=== PATIENT | male | born 1975 | race Caucasian/White ===

== ENCOUNTER 2018-03-18 20:04 | Emergency (ER) | payer OTHER, SELFPAY ==
[2018-03-18 20:13] VITALS: BP 150/90; PULSE 66; RESP 20; TEMP 37.3; O2SAT 97
--- NOTE | 2018-03-18 20:51 | ED.GENADUL_ITS ---
Disposition Clinical Impression: Ulnar neuropathy, Tendinitis of right wrist Disposition: HOME Condition: Stable Instructions: Tendinitis (ED) Additional Instructions: Please wear the brace at all times for the next 2 weeks and take pain medication as needed. If you not improving over the next 2 weeks please follow- up with orthopedist for reassessment. Prescriptions: Diclofenac Sodium 50 mg PO Q8H PRN #15 tablet.dr OSBORNE Reason: Pain Referrals: Lamine Faith MD [ [facility] STAFF PHYSICIAN] - Pedro Quesada MD [ [facility] STAFF PHYSICIAN] - 2 weeks (If not improving over the next 2 weeks please call orthopedic office for arrangement of follow- up appointment) Medical Decision Making - Medical Decision Making Patient presenting to the emergency department with complaint of right wrist pain after bowling. Physical exam is unremarkable and patient has appropriate strength and movement but does have sensation of numbness and tingling in ulnar distribution and also some mild medial epicondyle tenderness but no pain with movement and so not typical for golfer's elbow but more of wrist tendinitis. Patient has no other findings so patient was placed in a wrist splint and prescribed diclofenac and told to follow-up with orthopedist in 2 weeks if not improved. After discussion of diagnosis and plan of care with patient patient agreed and stated no further needs, questions, or concerns at this time. History of Present Illness - General Chief complaint: Orthopedic Stated complaint: RT HAND INJURY Time Seen by Provider: 03/18/18 20:49 Source: patient, RN notes reviewed Mode of arrival: ambulatory Limitations: no limitations - History of Present Illness Initial comments: Patient reports months ago he was bowling and started to notice some pain in his right hand. He was concerned he may have injured the tendon and so he stopped bowling for a while. Then today he reattempted to do this and when he threw the ball little more harder than normal he noticed significant pain to his little and ring finger on the right hand. Patient states that he never got evaluated for the initial injury as it slowly resolved without any major intervention. Patient denies any injury or trauma, falls. Onset/Timin -: minutes(s) Location: right, upper extremity Severity scale (1-10): 6 Quality: aching Consistency: constant Improves with: immobilization Worsens with: movement Associated Symptoms: denies other symptoms Treatments Prior to Arrival: none - Related Data Albuterol [Proventil Hfa] 6.7 gm IH 03/23/13 Diclofenac Sodium 50 mg PO Q8H PRN #15 tablet. 03/18/18 Fluticasone/Salmeterol [Advair 100-50 Diskus] 1 puff IN PRN PRN 03/18/18 Allergies Allergy/AdvReac Type Severity Reaction Status Date / Time Latex, Natural Rubber Allergy Skin Rash Unverified 12/18/17 19:58 codeine AdvReac Mild Nausea Unverified 12/18/17 19:58 church AdvReac Uncoded 03/18/18 20:15 Review of Systems Constitutional: no symptoms reported Respiratory: no symptoms reported Cardiovascular: denies: chest pain Musculoskeletal: as per HPI Skin: denies: rash, change in color Neurological: paresthesias (To the ulnar aspect of right hand). denies: weakness Comment: All other systems reviewed and negative Past Medical History - Past Medical History Medical history: asthma Noncontributory Surgical history: other (Tonsillectomy, right arm tendon repair) - Social History Smoking status: never smoker Alcohol use: none Drug use: none General Exam - General Limitations: no limitations General appearance: alert, in no apparent distress - Respiratory Respiratory exam: Absent: respiratory distress - Cardiovascular Cardiovascular Exam: Present: regular rate, normal rhythm - Expanded Upper Extremity Exam Right Upper Arm exam: Present: normal inspection, full ROM. Absent: tenderness Elbow exam: Present: full ROM, tenderness (Mild tenderness is noted to the medial epicondyle), other. Absent: pain w/ pronation/supination, tenderness over radial head Forearm Wrist exam: Present: full ROM. Absent: tenderness, tenderness over anatomical snuff box, pain with axial thumb loading Hand Wrist exam: Present: full ROM. Absent: other (Negative Tinel and Phalen's test) Neuro motor exam: Present: wrist extension intact, thumb opposition intact, thumb IP flexion intact, thumb adduction intact, fingers 2-5 abduction intact Neurosensory exam: Present: 2-point discrimination, radial nerve intact, ulnar nerve intact, median nerve intact Vascular: Present: normal capillary refill, radial pulse (2+) - Neurological Exam Neurological exam: Present: alert, oriented X3. Absent: altered - Skin Skin exam: Present: warm, dry, intact, normal color Course Vital Signs - 24 hr 03/18/18 20:13 Temperature 37.3 C Pulse 66 Respiratory 20 Rate Blood Pressure 150/90 Pulse Oximetry 97
[2018-03-18 22:26] VITALS: BP 150/90; PULSE 66; RESP 20; TEMP 37.3; O2SAT 97
== END 2018-03-18 21:20 | disposition home or self-care (01) ==
PROVIDERS: Emergency Provider Emergency Medicine; PCP Nurse Practitioner
DX: G56.21 Lesion of ulnar nerve, right upper limb (principal); M77.8 Other enthesopathies, not elsewhere classified
CPT/HCPCS: 29125; 99284; L3908

== ENCOUNTER 2018-07-10 01:54 | Emergency (ER) | payer OTHER, SELFPAY ==
[2018-07-10 01:59] VITALS: BP 165/111; PULSE 61; RESP 18; TEMP 36.9; O2SAT 97
--- NOTE | 2018-07-10 02:51 | DI.CT_ITS ---
SYMPTOMS/DIAGNOSIS: RIGHT UPPER CERVICAL/OCCIPITAL PAIN CT BRAIN, NONCONTRAST: No priors. There is normal kemp-white matter differentiation. The ventricles are intact. The basilar cisterns are patent. No intracranial hemorrhage, infarct, midline shift or mass effect is identified. There is opacification of a few right ethmoid air cells. The remaining visualized paranasal sinuses are clear. The mastoid air cells are well pneumatized. The calvarium is intact. IMPRESSION: No acute intracranial process. CT SCAN OF THE CERVICAL SPINE: Multiple contiguous axial images of the cervical spine were obtained. Sagittal and coronal reformatted images were evaluated on the Siemens workstation. There is straightening of the normal cervical lordosis. No acute fractures or subluxations are seen. No significant neural foraminal or central spinal canal stenosis is seen. There are lucencies seen in the L3 and L4 vertebral bodies. The largest is seen in the L3 vertebral body and measures 0.8 cm. No periosteal reaction or associated soft tissue mass is appreciated. The soft tissues are unremarkable. The lung apices are clear. IMPRESSION: 1. No acute fractures or subluxations in the cervical spine. 2. Straightening of the cervical spine. This may be due to muscle spasm or patient positioning. 3. Lucencies seen within the C3 and C4 vertebral bodies. These are nonspecific. If clinically indicated, a bone scan may be obtained for further evaluation.
--- NOTE | 2018-07-10 02:52 | W.ED.GENAD ---
Discharge Plan Disposition Patient Disposition: HOME Condition: Improving Discharge Details Chief Complaint: Headache Clinical Impression: Neck pain on right side, Right-sided headache Primary Care Provider: Dedra Akhtar ED Provider: Darnell Guadalupe Meds and New Rx's Prescriptions: New lidocaine [Lidoderm] 5 % Adhesive Patch,Medicated 1 patch Topical DIRECTED Qty: 6 RF: 0 ibuprofen 600 mg tablet 600 mg PO TID PRN (Reason: pain) Qty: 20 RF: 0 Continue albuterol sulfate [Proventil HFA] 1 PUFF HFA aerosol inhaler 6.7 gm Inhalation RF: 0 Discharge Instructions Additional Instructions: CT scans are negative for any acute pathology. Some lucencies in the cervical spine can be followed up with bone scan if thought necessary by primary care. There are no masses, fracture, swelling noted. Lidoderm patches and ibuprofen as directed. Follow-up with primary care this week. Return to ED for worsening pain, numbness, weakness, fever, any other concerns. Referrals: Dedra Akhtar [Primary Care Provider] - Medical Decision Making Patient has some signs and symptoms consistent with occipital neuralgia, but palpation over the occipital ridge does not increase the pain. He has normal range of motion of the neck and no pain with range of motion of the neck; yet he has tenderness with increased pain with palpation in the right paracervical region about C1-C2 area. Pain radiates up and behind the ear at times consistent with occipital neuralgia. But he also complains of pain radiating along the right mandible which is more consistent with trigeminal neuralgia. He also has pain that radiates down the neck into his throat area. There is no clear nerve distribution that this pattern affects. There is no trauma. He is completely neurologically intact. Ibuprofen and acetaminophen has helped to some degree. There is no rash to suggest shingles. ENT exam is unremarkable. I'm going to place a Lidoderm patch in the right upper cervical region and give him a shot of Toradol. Will scan his head and cervical spine for any gross abnormalities. CT scan of head and neck essentially unremarkable. Some radiolucencies in C3-C4. Radiology suggests bone scan if concern for these areas. On reevaluation patient's pain is better and more tolerable though not gone. Blood pressure still elevated so we will need to follow-up with primary care in regards to his pain as well as blood pressure. Will discharge home and have him follow-up with primary care this coming week. Return to ED for worsening pain, fever, any neurologic symptoms. HPI General Mode of arrival: ambulatory. Date/Time Provider Initiated Documentation: 07/10/18 02:09. Limitations to Documentation: no limitations. Information obtained by: patient. HPI Narrative: Patient presents to the ED with complaint of right-sided neck and head pain. Patient started having pain 1-2 days ago. It is described as a constant sharp throbbing pain that emanates from the upper right side of the neck. At times it seems to go behind and over the ear. At times it seems to go out into the right jaw towards the chin. Other times it seems to go down into his neck and throat. Pushing over his right side upper cervical region can cause the pain to be worse. There is no increasing pain with range of motion of his neck. He has no limited range of motion of his neck. There has been no trauma. There has been no fever. It almost feels like he has an earache at times. He has no cold symptoms. He has no difficulty swallowing. He has no pain with swallowing. He has no numbness or tingling. There is no rash. He has never had this previously. He has been taking ibuprofen and acetaminophen with minimal relief. Related Data Home Medications Medication Instructions Recorded Confirmed albuterol sulfate [Proventil HFA] 6.7 gm INHALATION 03/23/13 10/08/15 ibuprofen 600 mg PO TID PRN #20 tab 07/10/18 lidocaine [Lidoderm] 1 patch TOPICAL DIRECTED #6 ea 07/10/18 Previous Rx's Medication Instructions Recorded ibuprofen 600 mg PO TID PRN #20 tab 07/10/18 lidocaine [Lidoderm] 1 patch TOPICAL DIRECTED #6 ea 07/10/18 Allergies Allergy/AdvReac Type Severity Reaction Status Date / Time Latex, Natural Rubber Allergy Skin Rash Unverified 07/10/18 02:06 codeine AdvReac Mild Nausea Unverified 07/10/18 02:06 church AdvReac Uncoded 07/10/18 02:06 General Stated Complaint: Headache WAYNE: 3 Review of Systems Constitutional Denies chills, Denies fever(s), Reports headache(s) and Denies weakness Eyes Denies blurry vision, Denies change in vision, Denies eye pain and Denies photophobia ENT Denies abnormal hearing, Denies dental pain, Denies dysphagia, Denies vertigo, Denies dizziness, Reports otalgia, Reports facial pain, Reports headache(s), Denies nasal congestion, Reports neck pain, Denies sinus pain, Denies sinus pressure and Denies sore throat Cardiovascular Denies chest pain, Denies edema and Denies dyspnea Respiratory Denies cough and Denies dyspnea Gastrointestinal Denies abdominal pain, Denies dysphagia, Denies nausea and Denies vomiting Musculoskeletal Denies back pain, Denies myalgias, Denies arthralgias, Denies limited range of motion, Denies muscle weakness, Reports neck pain, Denies numbness, Denies radiating pain into limb, Denies stiffness and Denies tingling Integumentary/Breasts Denies rash Neurologic Denies abnormal hearing, Denies abnormal speech, Denies burning sensations, Denies vertigo, Denies dizziness, Reports headache(s), Denies focal weakness, Denies numbness, Denies other visual disturbances, Denies sensory deficit, Denies tingling, Denies paresthesias and Denies weakness PFSH Asthma (Chronic) History of surgery on arm (Inactive) Medical History Asthma (Chronic) Social History Smoking/Tobacco Use Status: Never Surgical History History of surgery on arm (Inactive) Social History Smoking/Tobacco Use Status: Never Exam Const General: cooperative, uncomfortable and not ill appearing Orientation: alert and oriented x3 HENMT Head: normal to inspection, normocephalic, atraumatic, no occipital foramen tenderness, no scalp lesions, no scalp tenderness and no temporal artery tenderness Ears: hearing grossly normal bilaterally, external ears normal, TM's normal bilaterally, EAC's normal and mastoids normal Face and sinus: normal facial exam, sinuses nontender, face symmetric and no erythema Mouth: oropharynx normal Teeth and gingiva: dentition normal Throat: posterior oropharynx normal and uvula midline Eyes Conjunctivae: conjunctivae normal Sclera: sclerae normal Pupils: PERRL EOM: EOM intact bilaterally Neck Neck: normal visual inspection, full ROM, no lymphadenopathy, trachea midline and supple Back/Spine/Pelvis Cervical Spine: cervical ROM normal, cervical muscular tenderness, No pain with cervical ROM and No cervical spinal tenderness Skin General skin exam: no rashes or lesions noted Neuro General: alert, oriented x3, gait normal, no focal motor deficits and CN's II-XI intact bilaterally Cognition: normal cognition Speech: speech normal Gait: normal gait Sensory Exam: no sensory deficits noted Extrem General: normal to inspection and no clubbing, cyanosis or edema Course Vital Signs Temperature 98.4 F 07/10/18 01:59 Pulse 61 07/10/18 01:59 Respiratory Rate 18 07/10/18 01:59 Blood Pressure 165/111 H 07/10/18 01:59 Pulse Oximetry 97 07/10/18 01:59 Temperature 98.4 F 07/10/18 01:59 Temperature Source Temporal Artery Scan 07/10/18 01:59 Pulse 61 07/10/18 01:59 Respiratory Rate 18 07/10/18 01:59 Respiratory Effort 07/10/18 01:59 Blood Pressure 165/111 H 07/10/18 01:59 Pulse Oximetry 97 07/10/18 01:59 Oxygen Delivery Method Room Air 07/10/18 01:59 Oxygen Flow Rate 0 07/10/18 01:59 Pain Level 8 07/10/18 02:04
--- NOTE | 2018-07-10 02:57 | ED.GENADUL_ITS ---
Discharge Plan Disposition Patient Disposition: HOME Condition: Improving Discharge Details Chief Complaint: Headache Clinical Impression: Neck pain on right side, Right-sided headache Primary Care Provider: Dedra Akhtar ED Provider: Darnell Guadalupe Meds and New Rx's Prescriptions: New lidocaine [Lidoderm] 5 % Adhesive Patch,Medicated 1 patch Topical DIRECTED Qty: 6 RF: 0 ibuprofen 600 mg tablet 600 mg PO TID PRN (Reason: pain) Qty: 20 RF: 0 Continue albuterol sulfate [Proventil HFA] 1 PUFF HFA aerosol inhaler 6.7 gm Inhalation RF: 0 Discharge Instructions Additional Instructions: CT scans are negative for any acute pathology. Some lucencies in the cervical spine can be followed up with bone scan if thought necessary by primary care. There are no masses, fracture, swelling noted. Lidoderm patches and ibuprofen as directed. Follow-up with primary care this week. Return to ED for worsening pain, numbness, weakness, fever, any other concerns. Referrals: Dedra Akhtar [Primary Care Provider] - Medical Decision Making Patient has some signs and symptoms consistent with occipital neuralgia, but palpation over the occipital ridge does not increase the pain. He has normal range of motion of the neck and no pain with range of motion of the neck; yet he has tenderness with increased pain with palpation in the right paracervical region about C1-C2 area. Pain radiates up and behind the ear at times consistent with occipital neuralgia. But he also complains of pain radiating along the right mandible which is more consistent with trigeminal neuralgia. He also has pain that radiates down the neck into his throat area. There is no clear nerve distribution that this pattern affects. There is no trauma. He is completely neurologically intact. Ibuprofen and acetaminophen has helped to some degree. There is no rash to suggest shingles. ENT exam is unremarkable. I'm going to place a Lidoderm patch in the right upper cervical region and give him a shot of Toradol. Will scan his head and cervical spine for any gross abnormalities. CT scan of head and neck essentially unremarkable. Some radiolucencies in C3- C4. Radiology suggests bone scan if concern for these areas. On reevaluation patient's pain is better and more tolerable though not gone. Blood pressure still elevated so we will need to follow-up with primary care in regards to his pain as well as blood pressure. Will discharge home and have him follow-up with primary care this coming week. Return to ED for worsening pain, fever, any neurologic symptoms. HPI General Mode of arrival: ambulatory . Date/Time Provider Initiated Documentation: 07/10/18 02:09 . Limitations to Documentation: no limitations . Information obtained by: patient . HPI Narrative: Patient presents to the ED with complaint of right-sided neck and head pain. Patient started having pain 1-2 days ago. It is described as a constant sharp throbbing pain that emanates from the upper right side of the neck. At times it seems to go behind and over the ear. At times it seems to go out into the right jaw towards the chin. Other times it seems to go down into his neck and throat. Pushing over his right side upper cervical region can cause the pain to be worse. There is no increasing pain with range of motion of his neck. He has no limited range of motion of his neck. There has been no trauma. There has been no fever. It almost feels like he has an earache at times. He has no cold symptoms. He has no difficulty swallowing. He has no pain with swallowing. He has no numbness or tingling. There is no rash. He has never had this previously. He has been taking ibuprofen and acetaminophen with minimal relief. Related Data Home Medications Medication Instructions Recorded Confirmed albuterol sulfate [Proventil HFA] 6.7 gm INHALATION 03/23/13 10/08/15 ibuprofen 600 mg PO TID PRN #20 tab 07/10/18 lidocaine [Lidoderm] 1 patch TOPICAL DIRECTED #6 ea 07/10/18 Previous Rx's Medication Instructions Recorded ibuprofen 600 mg PO TID PRN #20 tab 07/10/18 lidocaine [Lidoderm] 1 patch TOPICAL DIRECTED #6 ea 07/10/18 Allergies Allergy/AdvReac Type Severity Reaction Status Date / Time Latex, Natural Rubber Allergy Skin Rash Unverified 07/10/18 02:06 codeine AdvReac Mild Nausea Unverified 07/10/18 02:06 church AdvReac Uncoded 07/10/18 02:06 General Stated Complaint: Headache WAYNE: 3 Review of Systems Constitutional Denies chills, Denies fever(s), Reports headache(s) and Denies weakness Eyes Denies blurry vision, Denies change in vision, Denies eye pain and Denies photophobia ENT Denies abnormal hearing, Denies dental pain, Denies dysphagia, Denies vertigo, Denies dizziness, Reports otalgia, Reports facial pain, Reports headache(s), Denies nasal congestion, Reports neck pain, Denies sinus pain, Denies sinus pressure and Denies sore throat Cardiovascular Denies chest pain, Denies edema and Denies dyspnea Respiratory Denies cough and Denies dyspnea Gastrointestinal Denies abdominal pain, Denies dysphagia, Denies nausea and Denies vomiting Musculoskeletal Denies back pain, Denies myalgias, Denies arthralgias, Denies limited range of motion, Denies muscle weakness, Reports neck pain, Denies numbness, Denies radiating pain into limb, Denies stiffness and Denies tingling Integumentary/Breasts Denies rash Neurologic Denies abnormal hearing, Denies abnormal speech, Denies burning sensations, Denies vertigo, Denies dizziness, Reports headache(s), Denies focal weakness, Denies numbness, Denies other visual disturbances, Denies sensory deficit, Denies tingling, Denies paresthesias and Denies weakness PFSH Asthma (Chronic) History of surgery on arm (Inactive) Medical History Asthma (Chronic) Social History Smoking/Tobacco Use Status: Never Surgical History History of surgery on arm (Inactive) Social History Smoking/Tobacco Use Status: Never Exam Const General: cooperative, uncomfortable and not ill appearing Orientation: alert and oriented x3 HENMT Head: normal to inspection, normocephalic, atraumatic, no occipital foramen tenderness, no scalp lesions, no scalp tenderness and no temporal artery tenderness Ears: hearing grossly normal bilaterally, external ears normal, TM's normal bilaterally, EAC's normal and mastoids normal Face and sinus: normal facial exam, sinuses nontender, face symmetric and no erythema Mouth: oropharynx normal Teeth and gingiva: dentition normal Throat: posterior oropharynx normal and uvula midline Eyes Conjunctivae: conjunctivae normal Sclera: sclerae normal Pupils: PERRL EOM: EOM intact bilaterally Neck Neck: normal visual inspection, full ROM, no lymphadenopathy, trachea midline and supple Back/Spine/Pelvis Cervical Spine: cervical ROM normal, cervical muscular tenderness, No pain with cervical ROM and No cervical spinal tenderness Skin General skin exam: no rashes or lesions noted Neuro General: alert, oriented x3, gait normal, no focal motor deficits and CN's II- XI intact bilaterally Cognition: normal cognition Speech: speech normal Gait: normal gait Sensory Exam: no sensory deficits noted Extrem General: normal to inspection and no clubbing, cyanosis or edema Course Vital Signs Temperature 98.4 F 07/10/18 01:59 Pulse 61 07/10/18 01:59 Respiratory Rate 18 07/10/18 01:59 Blood Pressure 165/111 H 07/10/18 01:59 Pulse Oximetry 97 07/10/18 01:59 Temperature 98.4 F 07/10/18 01:59 Temperature Source Temporal Artery Scan 07/10/18 01:59 Pulse 61 07/10/18 01:59 Respiratory Rate 18 07/10/18 01:59 Respiratory Effort 07/10/18 01:59 Blood Pressure 165/111 H 07/10/18 01:59 Pulse Oximetry 97 07/10/18 01:59 Oxygen Delivery Method Room Air 07/10/18 01:59 Oxygen Flow Rate 0 07/10/18 01:59 Pain Level 8 07/10/18 02:04
[2018-07-10] MEDS: Lidocaine 5% Patch 1 PATCH TP (03:02)
[2018-07-10] MEDS: Ketorolac 60 MG/2 ML VIAL IM (03:02)
--- NOTE | 2018-07-10 04:12 | DI.VRAD_ITS ---
EXAM: CT Head Without Intravenous Contrast EXAM DATE/TIME: 07/10/2018 2:52 AM CLINICAL HISTORY: 43 years old, male; Pain; Other: Atraumatic occipital / cervical pain; Neck pain TECHNIQUE: Axial computed tomography images of the head/brain without intravenous contrast. Coronal and sagittal reformatted images were created and reviewed. COMPARISON: No relevant prior studies available. FINDINGS: Brain: Normal. No hemorrhage. No significant white matter disease. No edema. Ventricles: Normal. No ventriculomegaly. Bones/joints: Normal. No acute fracture. Sinuses: Minimal partial right ethmoid sinusitis. Left maxillary sinus retention cyst. Mastoid air cells: Normal as visualized. No mastoid effusion. Soft tissues: Normal. IMPRESSION: 1. No acute intracranial findings. 2. No acute fracture. EXAM: CT Cervical Spine Without Intravenous Contrast EXAM DATE/TIME: 07/10/2018 2:52 AM CLINICAL HISTORY: 43 years old, male; Pain; Other: Atraumatic occipital / cervical pain; Neck pain TECHNIQUE: Axial computed tomography images of the cervical spine without intravenous contrast. Coronal and sagittal reformatted images were created and reviewed. COMPARISON: No relevant prior studies available. FINDINGS: Vertebrae: No acute fracture. No subluxation. Loss of normal cervical lordosis with straightening of the cervical spine. Focal radiolucencies within the C3 and C4 vertebral bodies - if clinically indicated, bone scan could be performed to determine whether these areas represent active lesions. Discs/Spinal canal/Neural foramina: No spinal stenosis. No neural foraminal narrowing. Soft tissues: Unremarkable. Lungs: Lung apices are normal. IMPRESSION: 1. No acute fracture or subluxation. 2. Loss of normal cervical lordosis with straightening of the cervical spine. 3. Focal radiolucencies within the C3 and C4 vertebral bodies - if clinically indicated, bone scan could be performed to determine whether these areas represent active lesions. Dictated and Authenticated by: Seven Daniels MD. Ordering:ARMANDO CLEMONS MD
[2018-07-10 04:53] VITALS: BP 160/111; PULSE 59; RESP 16; O2SAT 98
== END 2018-07-10 04:39 | disposition home or self-care (01) ==
LOC: ER 04:39
PROVIDERS: Emergency Provider Emergency Medicine; PCP Nurse Practitioner
DX: M54.2 Cervicalgia (principal); R51 Headache
CPT/HCPCS: 96372; 99284; 70450; 72125; J1885

== ENCOUNTER 2018-07-13 11:56 | Emergency (ER) | payer OTHER, SELFPAY ==
[2018-07-13 11:58] VITALS: BP 159/116; PULSE 64; RESP 16; TEMP 36.6; O2SAT 98
--- NOTE | 2018-07-13 12:49 | ED.GENADUL_ITS ---
Discharge Plan Disposition Patient Disposition: HOME Condition: Good Discharge Details Chief Complaint: DentalOral Clinical Impression: Trigeminal neuralgia, Lesion of vertebra Primary Care Provider: Dedra Akhtar ED Provider: Yung Roblero Home Meds and New Rx's Prescriptions: New carbamazepine 200 mg capsule, ER multiphase 12 hr 200 mg PO BID Qty: 60 RF: 0 amoxicillin-pot clavulanate [Augmentin] 875-125 mg tablet 1 tab PO BID Qty: 14 RF: 0 No Action albuterol sulfate [Proventil HFA] 1 PUFF HFA aerosol inhaler 6.7 gm Inhalation PRN PRNRF: 0 lidocaine [Lidoderm] 5 % Adhesive Patch,Medicated 1 patch Topical DIRECTED Qty: 6 RF: 0 ibuprofen 600 mg tablet 600 mg PO TID PRN (Reason: pain) Qty: 20 RF: 0 Discharge Instructions Instructions: Trigeminal Neuralgia (ED), Toothache (ED) Additional Instructions: Please take the medication and antibiotic as directed. Please follow-up with your dentist and her primary care provider soon as possible. If you notice any worsening of your symptoms, or any new symptoms such as vomiting, neck stiffness , diarrhea, fever, chills, shortness of breath, chest pain, numbness, weakness, or fainting , please return immediately to the emergency department for reevaluation. Please follow up with your primary care provider as soon as possible for reassessment and reevaluation. As always, it was a pleasure participating in your medical care today. Stand Alone Forms: Work Release Referrals: Dedra Akhtar [Primary Care Provider] - Discharge Data Discharge Date/Time-TO BE ENTERED AT DEPARTURE: 07/13/18 13:07 Medical Decision Making This is a very pleasant 43-year-old male who presents for evaluation of right-sided facial pain. Patient was seen and assessed here 3 days ago where he had a negative CT scan per virtual radiology, and improvement of his symptoms with Lidoderm patch and NSAIDs. His signs and symptoms at that time were consistent with trigeminal neuralgia, no other significant abnormalities. Unfortunately that when the patient went home his pain eventually came back, and he continues to be symptomatic. He has missed work because of this. He now has 2 new symptoms of mild associated dental pain in his upper mouth, as well as a funny taste in his mouth which she describes as similar to when he has had previous cavities. Physical exam demonstrates no red flags of nuchal rigidity, no signs or symptoms suggestive of meningitis. He demonstrates no red flags of neurologic deficit, or neurologic abnormality in the lower or upper extremities, no weakness in the extremities, no signs or symptoms consistent with cervical spine cord compression or other abnormality. Patient' s oral cavity does show evidence of dental caries but no evidence of significant abscess, erythema, or drainage. No significant tenderness on palpation of the teeth. The patient has no evidence of a tender temporal artery. No family history of significant autoimmune disease. Patient signs and symptoms appear clinically consistent with trigeminal neuralgia, and I do not see signs of a dental abscess. Patient is very concerned that his symptoms may be related to a dental carry, he does demonstrate reassuring vital signs with no fever, normal heart rate. I think it is reasonable to start the patient on a potential antibiotic due to his clinical concern and symptoms however I feel infection is less likely. More importantly I feel that he needs alternative treatment for his trigeminal neuralgia. On his arrival I did place a bupivacaine with epinephrine block into his right sub-occiput region where the pain was located. He had notable improvement of his symptoms with this. We then gave the patient carbamazepine, and a prescription for this for home use. Patient was discharged with improvement of his symptoms, instructions for close follow-up with his PCP at his already scheduled appointment, and a long discussion regarding red flags which to immediately return. I have extensively reviewed the treatment plan and discharge instructions with the patient and their family. I have addressed all patient concerns at this time. The patient and family was made aware of what symptoms to monitor for that would warrant a return to the emergency department. Discussed the plan with the patient and family, they demonstrate verbal understanding and agreement with our assessment and plan at this time. Of note upon reviewing of the images at a later time in the day I did note a discrepancy noted between the in-house radiologist read and the virtual radiology read. Per our in-house radiologist, which occurred much later after the virtual radiology report after patient discharge, there does appear to be certain lucencies noted in the cervical spine in C3 and C4 vertebral bodies. It is recommended that a bone scan be performed for further evaluation. The patient had already been discharged from the emergency department on this episode, and so I did personally call him back and discuss the case with him as well as the CT scan findings, recommended that he discuss it with his primary care provider. I will add this to the diagnoses so that it can be more easily seen and assessed by his PCP. I feel that the patient's symptoms are clinically inconsistent with an abnormality secondary to these lucencies. His signs and symptoms at the time of discharge were clinically consistent with trigeminal neuralgia. Of note when I did call the patient he states that his neck pain had nearly completely improved and he was feeling much better than he had before. IMPRESSION: 1. No acute fractures or subluxations in the cervical spine. 2. Straightening of the cervical spine. This may be due to muscle spasm or patient positioning. 3. Lucencies seen within the C3 and C4 vertebral bodies. These are nonspecific. If clinically indicated, a bone scan may be obtained for further evaluation. HPI General Date/Time Provider Initiated Documentation: 07/13/18 12:09 . HPI Narrative: This is a 43-year-old male with no significant past medical history who presents today for evaluation of right-sided mouth and neck pain. He was recently seen here and assessed by my colleague Dr. Guadalupe within the last 72 hours. At that time he had a CT scan which was read as no acute process per the virtual radiologist. He was treated with a Lidoderm patch and NSAIDs, after mild improvement of his symptoms he was discharged home. He had no neurologic deficits or concerning findings at that time. However, his symptoms gradually returned when he went home, and continued for the next 48 hours. He presents today for reevaluation and the lack of improvement of his symptoms. He states that his symptoms of right-sided suboccipital neck pain radiating to the right side of his face continue, he describes it as an irritating aching-like sensation. He denies any neck stiffness, fever, chills, generalized headache headache, or vision changes. He does admit to an odd taste in his mouth, as well as some upper dental pain now. He states that he has a history of dental caries, is concerned that may be the cause of this is a tooth issue. The patient denies any other associated or new symptoms. He has been taking home medications as directed. He has no other complaints at this time. He denies any recent surgeries, injuries, trauma, or other symptoms of vision changes, changes in smell, or hearing. He denies any tinnitus or rash. He denies any IV or illicit drug use. Related Data Home Medications Medication Instructions Recorded Confirmed albuterol sulfate [Proventil HFA] 6.7 gm INHALATION PRN PRN 03/23/13 07/13/18 ibuprofen 600 mg PO TID PRN #20 tab 07/10/18 07/13/18 lidocaine [Lidoderm] 1 patch TOPICAL DIRECTED #6 ea 07/10/18 07/13/18 amoxicillin-pot clavulanate 1 tab PO BID #14 tab 07/13/18 [Augmentin] carbamazepine 200 mg PO BID #60 cap 07/13/18 Previous Rx's Medication Instructions Recorded ibuprofen 600 mg PO TID PRN #20 tab 07/10/18 lidocaine [Lidoderm] 1 patch TOPICAL DIRECTED #6 ea 07/10/18 amoxicillin-pot clavulanate 1 tab PO BID #14 tab 07/13/18 [Augmentin] carbamazepine 200 mg PO BID #60 cap 07/13/18 Allergies Allergy/AdvReac Type Severity Reaction Status Date / Time Latex, Natural Rubber Allergy Skin Rash Unverified 07/13/18 12:04 codeine AdvReac Mild Nausea Unverified 07/13/18 12:04 church AdvReac Uncoded 07/13/18 12:04 General Stated Complaint: DentalOral WAYNE: 4 Review of Systems Review of Systems All systems reviewed & are unremarkable except as noted in HPI and below PFSH Medical History Asthma (Chronic) Social History Smoking/Tobacco Use Status: Never Surgical History History of surgery on arm (Inactive) Social History Smoking/Tobacco Use Status: Never Exam Narrative Exam Narrative: 1.Const: Well-nourished, Well-developed, appearing stated age 2.Eyes: PERRL, no conjunctival injection, and symmetrical lids. 3.ENT: Atraumatic external nose and ears. Moist MM. Neck: Symmetric, trachea midline, No thyromegaly. Patient demonstrates good movement of cervical neck. There is no nuchal rigidity, no nuchal tenderness. Patient is able to flex the neck without any difficulty or significant pain. Negative Kernig's and Brudzinski sign. No palpable temporal artery. No evidence of rash or shingles. No evidence of cholesteatoma in the ears, no signs of vision abnormalities or eye abnormalities. She is point of tenderness over the right lateral occiput. No evidence of deformity, trauma or abnormality. No tenderness over the sternocleidomastoid. No significant cervical lymphadenopathy. No significant muscle spasms are noted. Dentition demonstrates some evidence of dental caries in the mouth, no evidence of abscess on palpation, no erythema or drainage. 4.CVS: +S1/S2, No murmurs or gallops. Peripheral pulses 2+ and equal in all extremities. Brisk capillary refill in all extremities. 5.RESP: Unlabored respiratory effort. Clear to auscultation bilaterally. No wheezes rales or rhonchi 6.GI: Soft, Nontender/Nondistended, No hepatosplenomegaly. No guarding or rebound. 7.MSK: Normocephalic/Atraumatic, Extremities w/o deformity or ttp No cyanosis or clubbing, Normal movement of all extremities 8.Skin: Warm, Dry. No rashes or lesions. 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 Sensation grossly intact, no focal neurologic deficits. Normal strength in the upper and lower extremities, normal sensation throughout. 10.Psych: (AAO) x3. Appropriate mood and affect Course Vital Signs Temperature 36.6 C 07/13/18 11:58 Pulse 64 07/13/18 11:58 Respiratory Rate 16 07/13/18 11:58 Blood Pressure 159/116 H 07/13/18 11:58 Pulse Oximetry 98 07/13/18 11:58 Temperature 36.6 C 07/13/18 11:58 Temperature Source Skin 07/13/18 11:58 Pulse 64 07/13/18 11:58 Respiratory Rate 16 07/13/18 11:58 Respiratory Effort 07/13/18 12:03 Blood Pressure 159/116 H 07/13/18 11:58 Blood Pressure Position Sitting 07/13/18 11:58 Pulse Oximetry 98 07/13/18 11:58 Oxygen Delivery Method Room Air 07/13/18 11:58 Oxygen Flow Rate 0 07/13/18 11:58 Pain Level 8 07/13/18 11:58
[2018-07-13 13:06] VITALS: BP 157/100; PULSE 64; RESP 16; TEMP 36.6; O2SAT 98
[2018-07-13] MEDS: carBAMazepine 200 MG TAB PO (13:06)
== END 2018-07-13 13:07 | disposition home or self-care (01) ==
LOC: ER 13:16
PROVIDERS: Emergency Provider Student in an Organized Health Care Education/Training Program; PCP Nurse Practitioner
DX: G50.0 Trigeminal neuralgia (principal); R93.7 Abnormal findings on diagnostic imaging of other parts of musculoskeletal system; R51 Headache
CPT/HCPCS: 64405; 99283; 99281

== ENCOUNTER 2018-07-18 17:27 | Emergency (ER) | payer OTHER, SELFPAY ==
[2018-07-18 17:35] VITALS: BP 174/122; PULSE 84; RESP 30; TEMP 36.8; O2SAT 94
[2018-07-18 17:45] VITALS: O2SAT 97
--- NOTE | 2018-07-18 18:04 | ED.GENADUL_ITS ---
Discharge Plan Disposition Patient Disposition: HOME Condition: Improving Discharge Details Chief Complaint: Headache Clinical Impression: Occipital headache Primary Care Provider: Dedra Akhtar ED Provider: Lamine Baum Home Meds and New Rx's Prescriptions: Continue albuterol sulfate [Proventil HFA] 1 PUFF HFA aerosol inhaler 6.7 gm Inhalation PRN PRNRF: 0 lidocaine [Lidoderm] 5 % Adhesive Patch,Medicated 1 patch Topical DIRECTED Qty: 6 RF: 0 ibuprofen 600 mg tablet 600 mg PO TID PRN (Reason: pain) Qty: 20 RF: 0 carbamazepine 200 mg capsule, ER multiphase 12 hr 200 mg PO BID Qty: 60 RF: 0 amoxicillin-pot clavulanate [Augmentin] 875-125 mg tablet 1 tab PO BID Qty: 14 RF: 0 Discharge Instructions Instructions: General Headache (ED) Additional Instructions: Home to sleep tonight in a position of comfort. May use the provided Dilaudid if needed for severe/breakthrough pain. We will ask our care managers to assist in setting up a follow-up appointment in neurology as well as a follow-up clinic appointment in primary care. Continue the previously prescribed medications. Return for development of fever, worsening pain, numbness, tingling, weakness of the upper extremities or any other acute concern Discharge Data Discharge Date/Time-TO BE ENTERED AT DEPARTURE: 07/18/18 20:20 Medical Decision Making 43-year-old male with severe, persistent headache over days time for which she has been seen twice in the emergency department and had an unremarkable CT scan of the head. He is thought to have both concomitant occipital neuralgia, question trigeminal neuralgia, as well as odontogenic infection for which he has been taking Augmentin. He also has been taking the prescribed Neurontin. He arrives in distress, hypertensive but afebrile and without focal neurologic deficits. Given the lack of findings on previous CT scan of the head, differential diagnosis includes migraine headache, cluster headache, occipital neuralgia, tension headache, or cervicogenic migraine. He had previously received occipital nerve block with minimal improvement. IV was placed, patient given fluids and parenteral medications. Labs do not reveal any abnormalities of the CBC, comprehensive, or CRP. Do not feel imaging grouping given that which is performed within the past week. Patient will note that extension of his head seems to incite his pain. He states it was somewhat improved with chiropractic manipulation. Does not want repeat occipital block. Would more strongly consider cervicogenic headache/ tension given his positional component. Following medications, patient has some improvement but voices significant anxiety about returning to home given his 3 time return visits to the ER. He was observed over hours time with near complete resolution of his pain, ambulatory, tolerating po and interactive with his partner. Blood pressure significantly improved and no change to unremarkable neuro exam. I feel he will benefit from outpatient neurology consultation and will ask care management to help arrange. We will also arrange outpatient followup with PMD. He is to be discharged to home Lab Data Lab results reviewed: Yes I reviewed the patient's lab results. Laboratory Results - last 24 hr 07/18/18 07/18/18 18:20 18:20 WBC 10.30 RBC 5.30 Hgb 15.8 Hct 45.4 MCV 85.7 MCH 29.8 MCHC 34.8 RDW 13.2 Plt Count 251 MPV 10.0 Immature Gran % 0.2 Neutrophils % 55.5 Lymphocytes % 32.8 Monocytes % 9.4 Eosinophils % 1.6 Basophils % 0.5 Absolute Neutrophils 5.72 Absolute Lymphocytes 3.38 Absolute Monocytes 0.97 H Absolute Eosinophils 0.16 Absolute Basophils 0.05 Sodium 140 Potassium 4.0 Chloride 101 Carbon Dioxide 29.0 Anion Gap 10.0 BUN 16 Creatinine 1.06 Estimated GFR/1.73 m2 >= 60.00 Glucose 118 H Calcium 9.4 Total Bilirubin 0.2 AST 21 ALT 40 Alkaline Phosphatase 81 C-Reactive Protein 0.08 Total Protein 7.8 Albumin 4.1 HPI General Mode of arrival: ambulatory . Date/Time Provider Initiated Documentation: 07/18/18 17:28 . Limitations to Documentation: no limitations . Information obtained by: patient . History of Present Illness 43 year old M presents to the emergency department with the chief complaint of Severe headache for approximately 10 days, described as severe, Quality is described as sharp and constant, and is localized to the head and right. Patient neck. Patient started experiencing this day(s) and it has been intermittent. No relieving factors improve symptom(s), Patient notes loss of appetite; denies fever/chills, rash and syncope. Patient did receive the following treatments prior to arrival, other (Augmentin, carbamazepine, ibuprofen) HPI Narrative: 43-year-old male presents stating he has had 10+ days of severe, constant headache. Evaluated in the emergency department on July 10 on the fourth. He had a CT scan of the head that was unremarkable. He was noted to have small bony cysts that may require bone scan for follow-up but no fracture or soft tissue reactive process. He states he presents today to the ER for severe, persistent pain over the past 2 hours been refractory to his home medications. States he has been taking prescribed medications including ibuprofen and Neurontin. Denies fever. He has not had any traumatic injury. He does not have any motor weakness, numbness, difficulty with speech,vision, or gait. Related Data Home Medications Medication Instructions Recorded Confirmed albuterol sulfate [Proventil HFA] 6.7 gm INHALATION PRN PRN 03/23/13 07/13/18 ibuprofen 600 mg PO TID PRN #20 tab 07/10/18 07/13/18 lidocaine [Lidoderm] 1 patch TOPICAL DIRECTED #6 ea 07/10/18 07/13/18 amoxicillin-pot clavulanate 1 tab PO BID #14 tab 07/13/18 [Augmentin] carbamazepine 200 mg PO BID #60 cap 07/13/18 Previous Rx's Medication Instructions Recorded ibuprofen 600 mg PO TID PRN #20 tab 07/10/18 lidocaine [Lidoderm] 1 patch TOPICAL DIRECTED #6 ea 07/10/18 amoxicillin-pot clavulanate 1 tab PO BID #14 tab 07/13/18 [Augmentin] carbamazepine 200 mg PO BID #60 cap 07/13/18 Allergies Allergy/AdvReac Type Severity Reaction Status Date / Time Latex, Natural Rubber Allergy Skin Rash Unverified 07/18/18 17:48 codeine AdvReac Mild Nausea Unverified 07/18/18 17:48 church AdvReac Mild Uncoded 07/18/18 17:48 General Stated Complaint: Headache WAYNE: 3 Review of Systems Review of Systems 8 systems reviewed and otherwise neg PFSH Asthma (Chronic) Medical History Asthma (Chronic) Social History Smoking/Tobacco Use Status: Never Surgical History History of surgery on arm (Inactive) Social History Smoking/Tobacco Use Status: Never Exam Narrative Exam Narrative: GEN: awake, alert, oriented 3. well groomed, interactive, in distress HEAD: Normocephalic, atraumatic ENT: Mucous membranes moist, oropharynx unremarkable, External ear exam unremarkable EYES: PERRL, EOMI, bilateral conjunctival injection NECK: Full ROM, no FARHAN, no menigismus. Tender R posterior/superior ad lower occipital. No mass. CHEST/RESP: Nontender, clear to auscultation bilateral, no wheeze/rhonchi/rales CARDIOVASCULAR: RRR, no murmur, rub domenic. 2+ Rad pulse bilateral ABDOMEN: Soft, nontender, no mass. +Bowel sounds EXT: Full ROM, no edema, no rash Neuro: Grossly normal neurologic exam, conversant, interactive. Cranial nerves II through XII intact. speech and gait normal. Psych: Speech fluent, thoughts congruent, affect normal Course Vital Signs Temperature 36.8 C 07/18/18 17:35 Pulse 84 07/18/18 17:35 Respiratory Rate 30 H 07/18/18 17:35 Blood Pressure 174/122 H 07/18/18 17:35 Pulse Oximetry 94 L 07/18/18 17:35 Temperature 36.8 C 07/18/18 17:35 Temperature Source Temporal Artery Scan 07/18/18 17:35 Pulse 84 07/18/18 17:35 Respiratory Rate 30 H 07/18/18 17:35 Blood Pressure 174/122 H 07/18/18 17:35 Blood Pressure Position Sitting 07/18/18 17:35 Pulse Oximetry 94 L 07/18/18 17:35 Pain Level 8 07/18/18 17:45
[2018-07-18] MEDS: Normal Saline 1,000 ML 1000 ML IV (18:20)
[2018-07-18 18:29] LABS: Abs Immature Grans 0.02 k/cumm (0.0-0.09); Absolute Basophil Count 0.05 k/cumm (0.0-0.2); Absolute Eosinophil Count 0.16 k/cumm (0.0-0.7); Absolute Lymphocyte Count 3.38 k/cumm (1.2-3.4); Absolute Monocyte Count 0.97 k/cumm (0.11-0.7); Absolute Neutrophil Count 5.72 k/cumm (1.2-6.7); Basophils % 0.5; Eosinophils % 1.6; HCT 45.4 % (40.0-50.0); HGB 15.8 g/dL (13.5-17.5); Immature Grans % 0.2; Lymphocytes % 32.8; Mean Corp. HGB Concentration 34.8 g/dL (32.0-36.0); Mean Corpuscular Hemoglobin 29.8 pg (27.0-33.0); Mean Corpuscular Volume 85.7 fL (80-95); Monocytes % 9.4; Neutrophils % 55.5; Platelet Count 251 x1000/uL (130-400); RBC Distribution Width 13.2 % (11.8-14.1)
[2018-07-18] MEDS: Ketorolac 30 MG/ML VIAL IVP (18:32)
[2018-07-18] MEDS: Dexamethasone 10 MG/ML VIAL IVP (18:35)
[2018-07-18 18:42] LABS: ALT 40 U/L (12-78); AST 21 U/L (15-37); Albumin 4.1 g/dL (3.4-5.0); Alkaline Phosphatase 81 U/L (46-116); BUN 16 mg/dL (7-18); Bilirubin, Total 0.2 mg/dL (0.2-1.0); C-Reactive Protein 0.08 mg/dL (0.0-0.3); CREATININE 1.06 mg/dL (0.70-1.30); Calcium 9.4 mg/dL (8.5-10.1); Chloride 101 mmol/L (98-107); Glucose 118 mg/dL (70-100); Sodium 140 mmol/L (136-145); Total Protein 7.8 g/dL (6.4-8.2)
[2018-07-18] MEDS: HYDROmorphone 2 MG/ML VIAL 1 MG IVP (18:45)
[2018-07-18 18:57] VITALS: BP 166/104; PULSE 60; RESP 22; TEMP 36.6; O2SAT 98
[2018-07-18] MEDS: Metoclopramide 10 MG/2 ML VIAL IVP (19:29)
[2018-07-18] MEDS: Normal Saline 50 ML (19:31)
[2018-07-18] MEDS: HYDROmorphone 2 MG TAB 4 MG PO (20:12)
[2018-07-18 20:23] VITALS: BP 152/90; PULSE 58; RESP 14; TEMP 36.5; O2SAT 98
== END 2018-07-18 20:20 | disposition home or self-care (01) ==
LOC: ER 20:25
PROVIDERS: Emergency Provider Emergency Medicine; PCP Nurse Practitioner
DX: R51 Headache (principal); I10 Essential (primary) hypertension
CPT/HCPCS: 36415; 80053; 96361; 96374; 96375; 99284; 85025; 86140; J1100; J1200; J1885; J2765

== ENCOUNTER 2018-10-04 09:34 | Emergency (ER) | payer OTHER, SELFPAY ==
[2018-10-04] VITALS (16 sets, daily range): BP systolic 123–150; BP diastolic 79–98; PULSE 75–107; RESP 13–26; TEMP 36.7; O2SAT 92–97
--- NOTE | 2018-10-04 10:04 | DI.CT_ITS ---
SYMPTOMS/DIAGNOSIS: LOWR ABD PAIN RADIATING UP CHEST, ? CHOLELITHIASIS, DIVERTICULITIS, COLITIS CT OF THE ABDOMEN AND PELVIS: Images were performed from the lung bases through the ischial tuberosities after IV and without oral contrast. The lung bases are clear. The liver shows fatty infiltration. The spleen, pancreas and adrenals are unremarkable. There is a small right renal cyst. There is no evidence of hydronephrosis or urinary tract calculi. The prostate is normal in size. The bladder is unremarkable. The aorta is normal in diameter. There are a few scattered diverticula in the lower descending and sigmoid colon. The appendix appears normal. There is some stranding and mild wall thickening around the ascending and transverse colon, consistent with colitis. There are a few small right sided reactive lymph nodes. There is L 5 spondylolysis and mild L 5 - S 1 spondylolisthesis. IMPRESSION: Wall thickening with surrounding stranding in the fat around the ascending and transverse colon, consistent with infectious or inflammatory colitis.
--- NOTE | 2018-10-04 10:04 | DI.RAD_ITS ---
SYMPTOMS/DIAGNOSIS: CHEST PAIN, ? ACUTE DISEASE PA AND LATERAL CHEST: Comparison is made with [id number]. The heart size is normal. The aorta is not dilated. The lungs are moderately well inflated and appear clear. No infiltrate, effusion or pneumothorax is seen. IMPRESSION: No acute abnormality.
--- NOTE | 2018-10-04 10:07 | ED.GENADUL_ITS ---
Discharge Plan Disposition Patient Disposition: HOME Condition: Stable Discharge Details Chief Complaint: Abd Prob Clinical Impression: Colitis Primary Care Provider: Dedra Akhtar ED Provider: Dulce German Home Meds and New Rx's Prescriptions: New prochlorperazine maleate [Compazine] 10 mg tablet 10 mg PO TID PRN (Reason: nausea and vomiting) Qty: 6 RF: 0 ciprofloxacin HCl [Cipro] 500 mg tablet 500 mg PO BID 5 Days Qty: 10 RF: 0 Continued cyclobenzaprine 10 mg tablet 10 mg PO DIRECTED Qty: 60 RF: 1 tramadol 50 mg tablet 50 mg PO Q8H PRN (Reason: pain) Qty: 90 RF: 1 Proventil HFA 1 PUFF HFA aerosol inhaler 6.7 gm Inhalation PRN PRNRF: 0 lidocaine [Lidoderm] 5 % Adhesive Patch,Medicated 1 patch Topical DIRECTED Qty: 6 RF: 0 ibuprofen 600 mg tablet 600 mg PO TID PRN (Reason: pain) Qty: 20 RF: 0 Discharge Instructions Instructions: Colitis (ED) Additional Instructions: Alternate Tylenol and Motrin as needed and directed for pain. Take your tramadol that you have at home as needed for pain. Take the antibiotics until finished. Take the Compazine as needed and directed for any nausea or vomiting. Follow a bland diet of bananas, rice, applesauce, toast, crackers and pretzels. Drink plenty of fluids. Follow-up with your primary care doctor in 2 days for reevaluation and for results of your stool culture. Discussed the stool culture results with your primary care doctor. If your stool culture results are negative for bacteria, you may stop the antibiotics. Return immediately to the emergency department any worsening or new concerning symptoms. Discharge Data Discharge Date/Time-TO BE ENTERED AT DEPARTURE: 10/04/18 13:35 Discharge Physician: Dulce German Medical Decision Making 43-year-old male with a history of asthma who presents with lower abdominal pain, nausea and watery brown nonbloody diarrhea for the past 2 days. Admits to recent travel to [place] 3 days ago prior to onset of symptoms. Admits to fever of 101 this morning. Afebrile on arrival. Heart rate 105. Patient appears uncomfortable but nontoxic. He is diffusely tender in the abdomen, worse in the lower abd without rebound rigidity or guarding. Negative psoas sign. Negative obturator sign. Negative heel jar sign. Differential diagnosis includes colitis, gastroenteritis, appendicitis, diverticulitis, bowel obstruction. Will place an IV, bolus IV fluids, labs and CT abdomen and pelvis and cxr. Patient had complained of pain rating up to his chest from his abdomen on arrival an EKG was done which noted a rate of 109, sinus tachycardia, right bundle branch block and left anterior fascicular block which is seen in previous and no other acute findings. 1215 --labs and imaging reviewed. White blood cell count 20. Bands 10 which may be inflammatory vs infectious. Negative troponin. Negative lipase. CT abdomen and pelvis notes inflammatory vs infectious colitis in the ascending and transverse colon. No evidence of appendicitis, cholecystitis, diverticulitis. Negative chest x-ray. 1230 --patient states he is feeling better and feels good to go home. He was able to drink water and had no vomiting. With report of fever this am, will send home with antibiotics. There are no hospital beds available here but also pt has normal heart rate, BP, appears nontoxic. A stool culture was obtained. Patient was instructed to follow-up with primary care doctor for reevaluation and for results of the stool culture in 2 days. We will also send home with prescription for Compazine for any nausea. Patient instructed to drink plenty of fluids. There is an interaction with Zofran and Cipro, so Zofran not given. He is instructed to return here immediately with any worsening or new concerning symptoms. 2100 -- Called pt at home [facility] and spoke with GF as wrong number for pt listed. She stated pt was feeling a little better and currently sleeping at home. Pt picked up antibiotics today but did not yet start. She was instructed that pt start the antibiotics immediately to treat colitis. She was again instructed to have pt return immediately to the ER with any worsening symptoms. Medical Records Medical records reviewed: Yes I reviewed the patient's medical records. Imaging Data Radiologic Study: Radiologist's impression: CT OF THE ABDOMEN AND PELVIS: Images were performed from the lung bases through the ischial tuberosities after IV and without oral contrast. The lung bases are clear. The liver shows fatty infiltration. The spleen, pancreas and adrenals are unremarkable. There is a small right renal cyst. There is no evidence of hydronephrosis or urinary tract calculi. The prostate is normal in size. The bladder is unremarkable. The aorta is normal in diameter. There are a few scattered diverticula in the lower descending and sigmoid colon. The appendix appears normal. There is some stranding and mild wall thickening around the ascending and transverse colon, consistent with colitis. There are a few small right sided reactive lymph nodes. There is L 5 spondylolysis and mild L 5 - S 1 spondylolisthesis. IMPRESSION: Wall thickening with surrounding stranding in the fat around the ascending and transverse colon, consistent with infectious or inflammatory colit is. PA AND LATERAL CHEST: Comparison is made with [id number]. The heart size is normal. The aorta is not dilated. The lungs are moderately well inflated and appear clear. No infiltrate, effusion or pneumothorax is seen. IMPRESSION: No acute abnormality. Lab Data Lab results reviewed: Yes I reviewed the patient's lab results. Laboratory Tests Range/Units 10/04/18 10/04/18 10:12 10:12 WBC (4.4-10.8) k/cumm 20.78 H RBC (4.50-6.00) m/cumm 5.32 Hgb (13.5-17.5) g/dL 15.7 Hct (40.0-50.0) % 45.3 MCV (80-95) fL 85.2 MCH (27.0-33.0) pg 29.5 MCHC (32.0-36.0) g/dL 34.7 RDW (11.8-14.1) % 13.1 Plt Count (130-400) x1000/uL 217 MPV (8.0-11.0) fL 10.8 Immature Gran % 0.0 Neutrophils % 75.0 Band Neutrophils % % 10.0 Lymphocytes % 5.0 Monocytes % 10.0 Eosinophils % 0.0 Basophils % 0.0 Absolute Neutrophils (1.2-6.7) k/cumm 17.66 H Absolute Lymphocytes (1.2-3.4) k/cumm 1.04 L Absolute Monocytes (0.11-0.7) k/cumm 2.08 H Absolute Eosinophils (0.0-0.7) k/cumm 0.00 Absolute Basophils (0.0-0.2) k/cumm 0.00 Differential Comment Manual differential RBC Morphology Normal Sodium (136-145) mmol/L 134 L Potassium (3.5-5.1) mmol/L 3.7 Chloride (98-107) mmol/L 97 L Carbon Dioxide (21.0-32.0) mmol/L 25.1 Anion Gap (3-11) mmol/L 11.9 H BUN (7-18) mg/dL 12 Creatinine (0.70-1.30) mg/dL 1.14 Estimated GFR/1.73 m2 (mL/min/1.73m2) >= 60.00 Glucose (70-100) mg/dL 155 H Calcium (8.5-10.1) mg/dL 8.5 Magnesium (1.8-2.4) mg/dL 1.5 L Total Bilirubin (0.2-1.0) mg/dL 0.4 AST (15-37) U/L 24 ALT (12-78) U/L 57 Alkaline Phosphatase (46-116) U/L 92 Troponin I (0.00-0.06) ng/mL < 0.02 Total Protein (6.4-8.2) g/dL 8.0 Albumin (3.4-5.0) g/dL 3.6 Lipase (73-393) U/L 114 ECG Data Attestation: I personally reviewed and interpreted this ECG (s) as follows: Interpretation: Rate of 109, sinus tachycardia, right bundle branch block and left anterior fascicular block. Seen in previous EKG. QTc 420. QRS 110. No acute ST elevation or depression. HPI General Mode of arrival: ambulatory . Date/Time Provider Initiated Documentation: 10/04/18 09:35 . Limitations to Documentation: no limitations . Information obtained by: patient . HPI Narrative: Patient is a 43-year-old male with history of asthma who presents with lower abdominal pain for the past 2 days. Patient states the pain is constant sharp and radiates from his lower abdomen up to his chest. States the pain is worse with eating. States he last ate pizza last night. He admits to nausea but denies any vomiting. He states he has approximately 10 episodes of diarrhea for the past 2 days which has been watery and brown but denies any bleeding. He states he recently traveled to [place] to a [place] 3 days ago just prior to onset of symptoms. He denies any alcohol. He smokes occasional marijuana. He admits to a temperature of 101 this morning. He denies any shortness of breath, recent antibiotics, recent surgeries, vomiting, urinary symptoms. He last took Advil last night and denies any relief. Related Data Home Medications Medication Instructions Recorded Confirmed Proventil HFA 6.7 gm INHALATION PRN PRN 03/23/13 09/08/18 ibuprofen 600 mg PO TID PRN #20 tab 07/10/18 09/08/18 lidocaine [Lidoderm] 1 patch TOPICAL DIRECTED #6 ea 07/10/18 09/08/18 cyclobenzaprine 10 mg tablet 10 mg PO DIRECTED #60 tab 07/21/18 09/08/18 tramadol 50 mg tablet 50 mg PO Q8H PRN #90 tab 07/21/18 09/08/18 ciprofloxacin HCl [Cipro] 500 mg PO BID 5 Days #10 tab 10/04/18 prochlorperazine maleate 10 mg PO TID PRN #6 tab 10/04/18 [Compazine] Previous Rx's Medication Instructions Recorded ibuprofen 600 mg PO TID PRN #20 tab 07/10/18 lidocaine [Lidoderm] 1 patch TOPICAL DIRECTED #6 ea 07/10/18 cyclobenzaprine 10 mg tablet 10 mg PO DIRECTED #60 tab 07/21/18 tramadol 50 mg tablet 50 mg PO Q8H PRN #90 tab 07/21/18 ciprofloxacin HCl [Cipro] 500 mg PO BID 5 Days #10 tab 10/04/18 prochlorperazine maleate 10 mg PO TID PRN #6 tab 10/04/18 [Compazine] Allergies Allergy/AdvReac Type Severity Reaction Status Date / Time Latex, Natural Rubber Allergy Skin Rash Unverified 10/04/18 09:45 codeine AdvReac Mild Nausea Unverified 10/04/18 09:45 church AdvReac Mild Uncoded 10/04/18 09:45 General Stated Complaint: Abd Prob WAYNE: 3 Review of Systems Review of Systems All systems reviewed & are unremarkable except as noted in HPI and below Constitutional Reports as per HPI, Denies chills and Denies fever(s) Eyes Denies blurry vision ENT Denies dizziness, Denies sore throat and Denies throat swelling Cardiovascular Denies chest pain and Denies dyspnea Respiratory Denies cough and Denies dyspnea Gastrointestinal Reports abdominal pain, Reports diarrhea, Reports nausea and Denies vomiting Genitourinary Denies hematuria and Denies dysuria Musculoskeletal Denies back pain and Denies numbness Integumentary/Breasts Denies lesions and Denies rash Neurologic Denies dizziness, Denies focal weakness and Denies numbness Allergic/Immunologic Denies throat swelling [facility] Medical History Fracture of lumbar spine (Acute) Asthma (Chronic) Surgical History History of tonsillectomy (Chronic) History of surgery on arm (Inactive) Family History Father Lung cancer Mother Lung cancer Social History household members: spouse current occupational status: employed 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 Smoking and Tabacco status: Never alcohol intake: current alcohol intake frequency: other substance use type: does not use additional social history: ETOH 1x per week Exam Const General: cooperative and acute distress (Appears uncomfortable) moderate Orientation: alert, awake and oriented x3 HENMT Head: normal to inspection Face and sinus: normal facial exam Eyes General: appearance normal, both eyes and all related structures Neck Neck: normal visual inspection and No submandibular swelling Lymphatic: no lymphadenopathy noted Chest Chest: normal inspection of the chest and no tenderness Resp Effort & Inspection: normal respiratory effort and able to speak in complete sentences Auscultation: clear to auscultation bilaterally Cardio Rate: regular rate Rhythm: regular rhythm GI Inspection: normal to inspection Palpation: soft, not firm, not rigid and tender (Diffusely, worse in lower abdomen) other (Negative heel jar sign.); obturator sign negative, psoas sign negative and with no rebound tenderness Auscultation: normal bowel sounds Skin General skin exam: no rashes or lesions noted Neuro General: alert, awake and oriented x3 Cognition: normal cognition Speech: speech normal Motor: muscle tone normal throughout Sensory Exam: no sensory deficits noted Extrem General: normal to inspection, full ROM and no edema Psych Appearance: grossly normal Mental Status: mental status grossly normal Speech and Movement: speech and movement normal Affect: normal affect Course Vital Signs Temperature 98.1 F 10/04/18 09:43 Pulse 105 H 10/04/18 09:43 Respiratory Rate 26 H 10/04/18 09:43 Blood Pressure 144/98 H 10/04/18 09:43 Pulse Oximetry 97 10/04/18 09:43 Temperature 98.1 F 10/04/18 09:43 Temperature Source Skin 10/04/18 09:43 Pulse 105 H 10/04/18 09:43 Respiratory Rate 26 H 10/04/18 09:43 Blood Pressure 144/98 H 10/04/18 09:43 Pulse Oximetry 97 10/04/18 09:43 Oxygen Delivery Method Room Air 10/04/18 09:43 Oxygen Flow Rate 0 10/04/18 09:43 Pain Level 7 10/04/18 09:43
[2018-10-04 10:21] LABS: HCT 45.3 % (40.0-50.0); HGB 15.7 g/dL (13.5-17.5); Mean Corp. HGB Concentration 34.7 g/dL (32.0-36.0); Mean Corpuscular Hemoglobin 29.5 pg (27.0-33.0); Mean Corpuscular Volume 85.2 fL (80-95); Mean Platelet Volume 10.8 fL (8.0-11.0); Platelet Count 217 x1000/uL (130-400); RBC 5.32 m/cumm (4.50-6.00); RBC Distribution Width 13.1 % (11.8-14.1); White Blood Cell Count 20.78 k/cumm (4.4-10.8)
[2018-10-04] MEDS: Ondansetron 4 MG/2 ML VIAL IVP (10:27)
--- NOTE | 2018-10-04 10:31 | NUR.NOTE ---
patient medicated per MD order Nursing Note:
[2018-10-04 10:33] LABS: ALT 57 U/L (12-78); AST 24 U/L (15-37); Albumin 3.6 g/dL (3.4-5.0); Alkaline Phosphatase 92 U/L (46-116); Anion Gap 11.9 mmol/L (3-11); BUN 12 mg/dL (7-18); Bilirubin, Total 0.4 mg/dL (0.2-1.0); CO2 25.1 mmol/L (21.0-32.0); CREATININE 1.14 mg/dL (0.70-1.30); Calcium 8.5 mg/dL (8.5-10.1); Chloride 97 mmol/L (98-107); Glucose 155 mg/dL (70-100); Lipase 114 U/L (73-393); Magnesium 1.5 mg/dL (1.8-2.4); Potassium 3.7 mmol/L (3.5-5.1); Sodium 134 mmol/L (136-145)
[2018-10-04 10:34] LABS: Troponin I < 0.02 ng/mL (0.00-0.06)
[2018-10-04 10:43] LABS: Absolute Lymphocyte Count 1.04 k/cumm (1.2-3.4); Absolute Monocyte Count 2.08 k/cumm (0.11-0.7); Absolute Neutrophil Count 17.66 k/cumm (1.2-6.7); Diff Comment Manual Differential
[2018-10-04 10:44] LABS: RBC Morphology Normal
--- NOTE | 2018-10-04 11:26 | NUR.NOTE ---
patient reports pain and nausea improved awaiting CT Nursing Note:
[2018-10-04] MEDS: Normal Saline 1,000 ML 1000 ML IV (11:30)
[2018-10-04] MEDS: Omnipaque 350 MG/ML 100 ML BTL IJ (11:49)
--- NOTE | 2018-10-05 09:06 | PDOC.ERCMPRO ---
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 Telephone number for Eduar is not a good number but Dr. German has spoken to his significant other. This CM called [facility] and spoke with Emma Hinkle. Emma scheduled Eduar for , 10/[address] German has left a voice message on Eduar's significant other's phone and will give appt when she calls back. Will also request new phone number for Eduar.
--- NOTE | 2018-10-05 09:20 | CMPROGNOTE_ITS ---
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 Telephone number for Eduar is not a good number but Dr. German has spoken to his significant other. This CM called [facility] and spoke with Emma Hinkle. Emma scheduled Eduar for , 10/[address] German has left a voice message on Eduar's significant other's phone and will give appt when she calls back. Will also request new phone number for Eduar.
--- NOTE | 2018-10-05 09:22 | W.ED.FU ---
Called pt's female leadership development instructor's phone number to inquire about patient's correct cell number and to follow-up to see how patient is feeling this morning. Left a message for her to call the ER today to inform her of the follow-up appointment made for patient for this week for 10/07 at 8:50 AM with Dedra Akhtar.
[2018-10-05 11:25] LABS: Salmonella PCR SEE COMMENTS; Shiga Toxin PCR SEE COMMENTS; Shigella/Enteroinvasive Ecoli SEE COMMENTS
[2018-10-05 11:49] LABS: Campylobacter PCR SEE COMMENTS
--- NOTE | 2018-10-05 16:08 | W.ED.FU ---
Able to contact patient on his cell number [phone]. Spoke to him twice today. On first call - inquired whether he had started his antibiotics and he stated he had not yet. He had stated he was feeling slightly better and that his abdominal pain was better with Motrin or Tylenol. He was urged to start the antibiotics immediately for concern for infectious diarrhea. He was informed that we had scheduled a follow-up appointment with his primary care doctor for 10/07 at 8:50 AM. On second call - informed patient that lab had called stating his stool culture had grown Campylobacter species. He had stated that he took his first dose of Cipro. He was instructed to continue this twice daily for 5 days. He was again reminded of his appointment with his primary care doctor in 2 days. He was instructed to return here immediately with any worsening symptoms
--- NOTE | 2018-10-05 16:12 | ED.FU.B_ITS ---
Able to contact patient on his cell number [phone]. Spoke to him twice today. On first call - inquired whether he had started his antibiotics and he stated he had not yet. He had stated he was feeling slightly better and that his abdominal pain was better with Motrin or Tylenol. He was urged to start the antibiotics immediately for concern for infectious diarrhea. He was informed that we had scheduled a follow-up appointment with his primary care doctor for 10/07 at 8:50 AM. On second call - informed patient that lab had called stating his stool culture had grown Campylobacter species. He had stated that he took his first dose of Cipro. He was instructed to continue this twice daily for 5 days. He was again reminded of his appointment with his primary care doctor in 2 days. He was instructed to return here immediately with any worsening symptoms
== END 2018-10-04 13:35 | disposition home or self-care (01) ==
PROVIDERS: Emergency Provider Physician Assistant; PCP Nurse Practitioner
DX: K52.9 Noninfective gastroenteritis and colitis, unspecified (principal)
CPT/HCPCS: 36415; 80053; 83690; 87046; 87505; 96361; 96374; 96375; 96376; 99285; 71046; 74177; 83735; 84484; 85025; 99284; J2405; J3490

== ENCOUNTER 2021-05-03 10:31 | Emergency (ER) | payer OTHER, SELFPAY ==
[2021-05-03 10:41] VITALS: BP 158/88; PULSE 60; RESP 18; TEMP 36.8; O2SAT 98
--- NOTE | 2021-05-03 10:45 | DI.RAD_ITS ---
Exam(s) XR HAND RT COMPLETE EXAM: XR HAND RT COMPLETE CLINICAL HISTORY: crush injury, pain. TECHNIQUE: 2D digital imaging was performed of the right hand. Three images were obtained. AP, late ral and oblique views were obtained. COMPARISON: No exams were available for comparison FINDINGS: BONES: No acute fracture is present. No bony destructive lesion is seen. JOINTS: No dislocation present. SOFT TISSUE: Normal. IMPRESSION: Unremarkable radiographs of the right hand. DATA REPOSITORY: RADIATION DOSE DELIVERED:
[2021-05-03] MEDS: Ibuprofen 600 MG TAB PO (12:25)
--- NOTE | 2021-05-06 08:32 | ED.GENADUL_ITS ---
Discharge Plan Disposition Patient Disposition: HOME Condition: Good Discharge Details Clinical Impression: Injury of right hand Primary Care Provider: Dedra Akhtar ED Provider: Ksasie Booker Home Meds and New Rx's Prescriptions: Continued albuterol sulfate [Proventil HFA] 1 PUFF HFA aerosol inhaler 6.7 gm Inhalation PRN PRNRF: 0 lidocaine [Lidoderm] 5 % Adhesive Patch,Medicated 1 patch Topical DIRECTED Qty: 6 RF: 0 ibuprofen 600 mg tablet 600 mg PO TID PRN (Reason: pain) Qty: 20 RF: 0 Discharge Instructions Additional Instructions: Keep wound clean and dry Wash wound once a day and redressed Wear splint for comfort, you may remove it when you are more comfortable You may take ibuprofen 600 mg every 8 hours with food and Tylenol 650 mg every 8 hours Repeat x-ray in 1 week with pain Stand Alone Forms: Work Release Discharge Data Discharge Date/Time-TO BE ENTERED AT DEPARTURE: 05/03/21 12:40 Medical Decision Making X-ray did not show abnormality per radiology interpretation in my review Wound cleansed, dressing applied Tetanus updated Return precautions and patient expressed understanding Ibuprofen and Tylenol for pain control Repeat x-ray in 1 week with pain To apply finger splint, however patient states pain exacerbated, so this was removed HPI General Mode of arrival: ambulatory . Date/Time Provider Initiated Documentation: 05/03/21 12:12 . Limitations to Documentation: no limitations . Information obtained by: patient . HPI Narrative: 45-year-old gentleman presents with right hand pain. He states that his hand stuck between a oil change in the little. He denies any additional injuries. This occurred at work. He has pain with movement of his right fifth digit. Denies history of coagulopathy. Denies any sensation change. Related Data Home Medications Medication Instructions Recorded Confirmed albuterol sulfate [Proventil HFA] 6.7 gm INHALATION PRN PRN 03/23/13 05/03/21 ibuprofen 600 mg PO TID PRN #20 tab 07/10/18 05/03/21 lidocaine [Lidoderm] 1 patch TOPICAL DIRECTED #6 ea 07/10/18 05/03/21 Previous Rx's Medication Instructions Recorded ibuprofen 600 mg PO TID PRN #20 tab 07/10/18 lidocaine [Lidoderm] 1 patch TOPICAL DIRECTED #6 ea 07/10/18 Allergies Allergy/AdvReac Type Severity Reaction Status Date / Time Latex, Natural Rubber Allergy Skin Rash Unverified 05/03/21 10:45 codeine AdvReac Mild Nausea Unverified 05/03/21 10:45 church AdvReac Mild Uncoded 05/03/21 10:45 General Stated Complaint: Orthopedic WAYNE: 4 Review of Systems Narrative: Review of systems obtained x3 and negative aside from where indicated in HPI [facility] Medical History (Updated 05/03/21 @ 12:14 by BORIS Linton) Asthma Fracture of lumbar spine Surgical History History of surgery on arm bicep tendon repair History of tonsillectomy Family History Father Lung cancer Mother Lung cancer Social History Smoking/Tobacco Use Status: Never Smoking risk assessment performed?: Yes Alcohol Intake: current Alcohol Intake frequency: other Drug use: Rarely Substance use type: marijuana Household members: spouse 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 Hematoma, tenderness with palpation Neurovascularly intact Range of motion No tenderness to wrist or distal finger Course Vital Signs Vital signs: Vital Signs Temperature 36.8 C 05/03/21 10:41 Pulse 60 05/03/21 10:41 Respiratory Rate 18 05/03/21 10:41 Blood Pressure 158/88 H 05/03/21 10:41 Pulse Oximetry 98 05/03/21 10:41 Temperature 36.8 C 05/03/21 10:41 Temperature Source Skin 05/03/21 10:41 Pulse 60 05/03/21 10:41 Respiratory Rate 18 05/03/21 10:41 Respiratory Effort Non-Labored 05/03/21 10:46 Blood Pressure 158/88 H 05/03/21 10:41 Blood Pressure Position Sitting 05/03/21 10:41 Pulse Oximetry 98 05/03/21 10:41 Oxygen Delivery Method Room Air 05/03/21 10:41 Oxygen Flow Rate 0 05/03/21 10:41 Pain Level 8 05/03/21 12:26
== END 2021-05-03 12:40 | disposition home or self-care (01) ==
PROVIDERS: Emergency Provider Physician Assistant; PCP Nurse Practitioner
DX: S69.82XA Other specified injuries of left wrist, hand and finger(s), initial encounter (principal); W23.0XXA Caught, crushed, jammed, or pinched between moving objects, initial encounter; Y99.0 Civilian activity done for income or pay
CPT/HCPCS: 99283; 73130

== ENCOUNTER 2021-07-24 16:03 | Outpatient (REF) | payer OTHER, SELFPAY ==
[2021-07-25 15:38] LABS: COVID-19 RT-PCR UVMMC Result Positive (Negative)
== END 2021-07-24 16:04 | disposition home or self-care (01) ==
LOC: NCHCN 16:03
PROVIDERS: PCP Nurse Practitioner; Visit Provider Nurse Practitioner
DX: Z20.822 Contact with and (suspected) exposure to COVID-19 (principal); R06.02 Shortness of breath
CPT/HCPCS: U0003

== ENCOUNTER 2021-12-31 18:22 | Outpatient (REF) | payer OTHER, SELFPAY ==
[2021-12-31 15:25] LABS: HCT 49.1 % (40.0-50.0); HGB 16.3 g/dL (13.5-17.5); MCH 29.4 pg (27.0-33.0); MCHC 33.2 % (32.0-36.0); MCV 89 fL (80-95); MPV 11.3 fL (8.0-11.0); Platelet Count 257 10^3/uL (130-400); RBC 5.54 10^6/uL (4.36-5.78); RDW 12.6 % (11.8-14.1); RDW-SD 41.1 fL; WBC 11.47 10^3/uL (4.4-10.8)
[2021-12-31 15:42] LABS: ALT 36 U/L (16-63); AST 19 U/L (15-37); Albumin 4.3 g/dL (3.4-5.0); Alkaline Phosphatase 100 U/L (46-116); Anion Gap 10.8 mmol/L (3-11); BUN 13 mg/dL (7-18); Bilirubin, Total 0.4 mg/dL (0.2-1.0); CO2 27.2 mmol/L (21.0-32.0); Calcium 9.3 mg/dL (8.5-10.1); Calculated LDL 131 mg/dL (<100); Chloride 103 mmol/L (98-107); Cholesterol 217 mg/dL (<200); Glucose 150 mg/dL (74-106); HDL Cholesterol 43 mg/dL (40-60); Sodium 141 mmol/L (136-145); Total Protein 7.4 g/dL (6.4-8.2); Triglyceride 218 mg/dL (<150)
[2021-12-31 16:40] LABS: Hemoglobin A1C 6.2 % (<5.7)
== END 2021-12-31 18:23 | disposition home or self-care (01) ==
LOC: NCHCN 18:22
PROVIDERS: PCP Nurse Practitioner; Visit Provider Nurse Practitioner Family
DX: Z00.00 Encounter for general adult medical examination without abnormal findings (principal); R73.9 Hyperglycemia, unspecified; R03.0 Elevated blood-pressure reading, without diagnosis of hypertension; J45.20 Mild intermittent asthma, uncomplicated; Z13.220 Encounter for screening for lipoid disorders
CPT/HCPCS: 80053; 80061; 85027; 83036

== ENCOUNTER 2022-02-24 10:35 | Emergency (ER) | payer OTHER, SELFPAY ==
[2022-02-24 10:43] VITALS: BP 159/106; PULSE 60; RESP 16; TEMP 36.8; O2SAT 97
--- NOTE | 2022-02-24 13:21 | ED.GENADUL_ITS ---
Discharge Plan Disposition Patient Disposition: HOME Condition: Stable Discharge Details Clinical Impression: Acute knee pain Primary Care Provider: Dedra Akhtar ED Provider: Magali Griffiths Home Meds and New Rx's Prescriptions: Continued albuterol sulfate [Proventil HFA] 1 PUFF HFA aerosol inhaler 6.7 gm Inhalation PRN PRN Label Comments: Patient unsure of dose ibuprofen 600 mg tablet 600 mg PO TID PRN (Reason: pain) Qty: 20 0RF Discharge Instructions Instructions: Knee Pain (ED) Additional Instructions: Your x-ray is reassuring here today. No evidence of fracture or dislocation. Please continue with brace for the next 1 to 2 weeks. Encourage rest, ice, elevation. Tylenol and ibuprofen as needed for discomfort. Please follow-up with primary care in the next 1 to 2 weeks for reevaluation. If you develop numbness/tingling, fever/chills, inability stay for your pain or other new/worsening symptoms seek care urgently once again. Stand Alone Forms: Work Release Referrals: Dedra Akhtar [Primary Care Provider] - Discharge Data Discharge Date/Time-TO BE ENTERED AT DEPARTURE: 02/24/22 17:15 Medical Decision Making Patient is a pelasant 46 year old male presenting today with c/c of right knee pain, primarily posteriorly. He reports that this began when he was standing, legs locked, behind a truck, trying to pull something heavy out of the bed. reports that he felt a pop has had severe posterior pain since then. States that when at rest, he has minimal pain. However, with weight vearing, he can have signficant pain. Denies numbness/tingling. No fevers/chills. No radiation of pain. No previous surgery to this knee. No SOB/CP, no recent periods of being sedentary or other DVT risk factors. On exam, patient appears comfortable. He indicates pain posteriorly along superior aspect of the posterior knee. Full ROM. Flexion/extension against resistance. 2+ distal pulses. sensation intact. No effusion. Ligamentously intact. No discoloration or ecchymosis. Calf is soft and nontender. History is most consistent with muscular tear/strain but I do not note any significant muscular defects or ecchymosis which is typically noted with this injury. He has no evidence of ligamentous injury. His history is not suggestive of DVT, nor does he have exam findings for this, negative Gomez test, no calf pain, cord or edema. Will obtain XR to evaluate for possible bony abnormality, possible avulsion fracture. Will give APAP and NSAID to help with discomfort. FINDINGS: BONES: No acute fracture is present. No bony destructive lesion is seen. JOINTS: The knee is normally aligned. No joint effusion is seen. SOFT TISSUE: Normal. IMPRESSION: Unremarkable radiographs of the right knee Consulted with Dr. Quesada as I am concerned I may be missing something. He advised likely small tear, no acute emergent pathology. Discussed with patient. Ecouraged RICE. Advised on return precautions. Will fit with brace to help with discomfort and support the knee. Discussed activities he should avoid for the time being. Advised f/u with PCP in the next 1-2 wk for reevaluation. all of his questions and concerns were addressed, he is in agreement with this plan. HPI General Date/Time Provider Initiated Documentation: 02/24/22 13:21 . Limitations to Documentation: no limitations . Information obtained by: patient and RN notes reviewed . History of Present Illness 46 year old M presents to the emergency department with the chief complaint of right knee pain, described as moderate, with intensity rated at 5. Quality is described as aching, and is localized to the right and lower extremity. Patient reports no radiation. Patient started experiencing this day(s) and it has been constant. Immobilization improves symptom(s), (nonweight bearing) Movement worsens symptoms (weight bearing) . Patient notes no other symptoms.. Patient did receive the following treatments prior to arrival, none Related Data Home Medications Medication Instructions Recorded Confirmed albuterol sulfate 90 mcg/actuation 6.7 gm inhalation PRN PRN 03/23/13 02/24/22 aerosol inhaler (Proventil HFA) ibuprofen 600 mg tablet 600 mg PO TID PRN pain #20 tabs 07/10/18 02/24/22 Previous Rx's Medication Instructions Recorded ibuprofen 600 mg tablet 600 mg PO TID PRN pain #20 tabs 07/10/18 Allergies Allergy/AdvReac Type Severity Reaction Status Date / Time Latex, Natural Rubber Allergy Skin Rash Unverified 02/24/22 10:46 codeine AdvReac Mild Nausea Unverified 02/24/22 10:46 church AdvReac Mild Uncoded 07/18/22 10:46 General Stated Complaint: Vascular WAYNE: 4 Review of Systems Constitutional Constitutional: Reports as per HPI, Denies chills, Denies fever(s) and Denies weakness Cardiovascular Cardiovascular: Reports as per HPI Respiratory Respiratory: Reports as per HPI and Denies cough Musculoskeletal Musculoskeletal: Reports as per HPI and Denies tingling Integumentary/Breasts Skin/Breast: Reports as per HPI, Denies rash and Denies wounds Neurologic Neurologic: Reports as per HPI, Denies tingling, Denies paresthesias and Denies weakness [facility] All Active Problems (Updated 02/24/22 @ 16:36 by BORIS Bazan) Injury of right hand (Acute) Acute knee pain (Acute) Neck pain (Acute) Right arm pain (Acute 03/18/18) Atypical pain of right forearm emanating from the sublimis arch towards the ring and little fingers of the right hand. Question of possible entrapment of the median or ulnar nerves by the sublimis arch or by the fascia. Recommend EMG nerve conduction studies of the median and ulnar nerves at the wrist and in the proximal forearm to see if there is any signs of compression of either nerve. 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 Do you feel safe at home: Yes Do you feel safe in your relationship?: Yes Exam Const General: cooperative, healthy appearing, comfortable, no acute distress, well developed and well groomed Nutritional Appearance: average body habitus and well nourished Orientation: alert and awake Resp Effort & Inspection: normal respiratory effort, able to speak in complete sentences and no respiratory distress Cardio Rate: regular rate Rhythm: regular rhythm Skin General skin exam: no rashes or lesions noted Lesions: no lesions Rashes: no rashes Trauma: no lacerations or abrasions Neuro General: patient alert and patient awake Cognition: normal cognition Speech: speech normal Gait: normal gait Motor: muscle tone normal throughout Sensory Exam: no sensory deficits noted Extrem Right lower extremity: normal to inspection, normal capillary refill, no joint enlargement, hip/thigh Details: normal to inspection and normal ROM; no tenderness and no swelling, knee Details: normal to inspection, tenderness (weight weight bearing, non elicited with palpation), normal ROM, knee ligament exam normal Details: anterior drawer test normal, posterior drawer test normal, valgus stress test normal and varus stress test normal; no pain with axial loading and Margarita's Test (unable to complete); no swelling, lower leg Details: normal to inspection and no edema; no tenderness, no localized swelling, no palpable cords and no crepitus, ankle Details: normal to inspection and foot Details: normal capillary refill, normal to inspection and vascular exam Details: dorsalis pedis pulse present, posterior tibial pulse present and normal capillary refill; no tenderness; no cyanosis and no edema Psych Appearance: grossly normal and well kempt Mental Status: mental status grossly normal Speech and Movement: speech and movement normal Course Vital Signs Vital signs: Vital Signs Temperature 36.8 C 02/24/22 10:43 Pulse 60 02/24/22 10:43 Respiratory Rate 16 02/24/22 10:43 Blood Pressure 159/106 H 02/24/22 10:43 Pulse Oximetry 97 02/24/22 10:43 Temperature 36.8 C 02/24/22 10:43 Temperature Source Temporal Artery Scan 02/24/22 10:43 Pulse 60 02/24/22 10:43 Respiratory Rate 16 02/24/22 10:43 Respiratory Effort 02/24/22 10:47 Blood Pressure 159/106 H 02/24/22 10:43 Blood Pressure Position Sitting 02/24/22 10:43 Pulse Oximetry 97 02/24/22 10:43 Oxygen Delivery Method Room Air 02/24/22 10:43 Oxygen Flow Rate 0 02/24/22 10:43 Pain Level 5 02/24/22 10:43 PAWSS Have you Been Recently Intoxicated or Drunk Within the Last 30 days?: Yes Have you Ever Experienced Previous Episodes of Alcohol Withdrawal?: No Have you ever Experienced Withdrawal Seizures?: No Have you ever Experienced Delirium Tremens(DT)s?: No Have you ever undergone Alcohol Rehabilitation Treatment (i.e, inpt ot outpatient treatment programs)?: No Have you ever Experienced Blackouts?: No Have you ever Combined Alcohol with other Downers within the last 90 days?: No Result: 1
[2022-02-24 14:41] VITALS: BP 161/95; PULSE 53; TEMP 36.7; O2SAT 99
--- NOTE | 2022-02-24 15:00 | DI.RAD_ITS ---
Exam(s) XR KNEE RT 4V AP,LAT,BOLA,PAT EXAM: XR KNEE RT 4V AP,LAT,BOLA,PAT CLINICAL HISTORY: medial pain, felt pop lifting heavy. TECHNIQUE: 2D digital imaging was performed. Three views. COMPARISON: No exams were available for comparison FINDINGS: BONES: No acute fracture is present. No bony destructive lesion is seen. JOINTS: The knee is normally aligned. No joint effusion is seen. SOFT TISSUE: Normal. IMPRESSION: Unremarkable radiographs of the right knee. DATA REPOSITORY: RADIATION DOSE DELIVERED:
[2022-02-24] MEDS: Acetaminophen 325 MG TAB 650 MG PO (15:07)
[2022-02-24] MEDS: Ibuprofen 600 MG TAB PO (15:07)
[2022-02-24 17:15] VITALS: BP 161/95; PULSE 53; RESP 16; TEMP 36.7; O2SAT 99
== END 2022-02-24 17:15 | disposition home or self-care (01) ==
PROVIDERS: Emergency Provider Physician Assistant; PCP Nurse Practitioner
DX: M25.561 Pain in right knee (principal)
CPT/HCPCS: 29505; 99283; 73564

== ENCOUNTER 2023-06-29 07:31 | Emergency (ER) | payer OTHER, SELFPAY ==
[2023-06-29] VITALS (7 sets, daily range): BP systolic 146–166; BP diastolic 86–112; PULSE 66–77; RESP 5–23; TEMP 36.5; O2SAT 96–99
--- NOTE | 2023-06-29 07:30 | RT.EKG_ITS ---
APPROVED REPORT Exam: Resting ECG Reason for Exam: sob Patient Location: E HR:73 bpm ECG Measurements Heart Rate 73 AXIS NC 167 P 66 QRSd 105 QRS -78 QT 372 T 30 QTc 410 Conclusion Sinus rhythm...normal P axis, V-rate 60- 99 Incomplete RBBB and LAFB...axis(240,-40), S>R II III aVF Normal sinus rhythm at a rate of 73. Left axis deviation no signs of LVH based on voltage criteria i n aVL. Incomplete right bundle and left anterior fascicular block. No acute injury pattern. No michael or for comparison.
--- NOTE | 2023-06-29 07:36 | W.ED.GENAD ---
Discharge Plan Disposition Patient Disposition: Home Discharge Details Clinical Impression: Acute asthma exacerbation Primary Care Provider: TABITHA HADDAD ED Provider: Ruiz Connolly Home Meds and New Rx's Prescriptions: New prednisone 50 mg tablet 50 mg PO DAILY Qty: 4 0RF Rx Instructions: Please begin taking tomorrow as you have received steroids in the emergency department Continued albuterol sulfate [Proventil HFA] 1 PUFF HFA aerosol inhaler 6.7 gm Inhalation PRN PRN Patient Comments: Patient unsure of dose ibuprofen 600 mg tablet 600 mg PO TID PRN (Reason: pain) Qty: 20 0RF albuterol sulfate 2.5 mg /3 mL (0.083 %) solution for nebulization 2.5 mg inhalation Q4H PRN Patient Comments: INHALE 1 VIAL BY MOUTH IN NEBULIZER EVERY 4 HOURS NEEDED FOR DIFFICULITY BREATHING budesonide-formoterol [Symbicort] 160-4.5 mcg/actuation HFA aerosol inhaler 2 puff INHALATION BID Patient Comments: INHALE 2 PUFFS BY MOUTH TWO TIMES A DAY ipratropium-albuterol 0.5 mg-3 mg(2.5 mg base)/3 mL solution for nebulization 3 ml INHALATION TID PRN Patient Comments: INHALE 1 VIAL BY MOUTH USING NEBULIZER THREE TIMES A DAY NEEDED (DME) [employer] Chamber Spacer MISCELLANEOUS Patient Comments: USE SPACER DIRECTED TWICE A DAY Discharge Instructions Instructions: Asthma (ED) Additional Instructions: You are seen in the emergency department for shortness of breath. You are found to have an exacerbation of your asthma for which you are receiving steroids which you should take as directed. Please return to the emergency department if you develop worsening shortness of breath chest pain or have any other concerns. Otherwise follow-up as needed with your primary care provider later this week. Discharge Data Discharge Date/Time-TO BE ENTERED AT DEPARTURE: 06/29/23 09:38 HPI General Date/Time Provider Initiated Documentation: 06/29/23 07:35. HPI Narrative: [facility] This is tachypneic and wheezing but normothermic and not tachycardic 48-year-old asthmatic requiring nebulized rescue albuterol and ipratropium along with methylprednisolone in the setting of his acute asthma exacerbation. He has no focal lung abnormalities nor any objective fevers to suggest pneumonia however given body aches and fever will obtain chest x-ray COVID swab swab and RSV swab. No chest pain to suggest ACS so will defer troponin testing. In the absence of chest pain hypotension and hypoxia my suspicion for PE is low. Furthermore patient is PERC negative so will defer D-dimer. No pain or proportion to suggest necrotizing soft tissue infection. Equal breath sounds and no history of trauma so my suspicion is low for pneumothorax. We will send a venous blood gas to assess for hypercarbia. Anticipate discharge. 7:58 AM Patient persistently wheezy following initial ipratropium albuterol so we will order 5 mg nebulized albuterol. 8 AM VBG lacks acidemia and hypercarbia. 8:25 AM Basic metabolic panel showing no WILD. No anion gap. Very mild hyperglycemia but given normal bicarbonate and no gap not consistent with DKA. CBC showing leukocytosis and erythrocytosis. No thrombocytopenia. Negative COVID & influenza. 9 AM Patient still with mild wheezes for which he will receive additional albuterol. 9:15 AM Chest x-ray read as no acute cardiopulmonary process. 9:25 AM Patient maintained oxygen saturation of 99 to 100% with ambulation. We will proceed with empiric trial of discharge with expectant outpatient management. Chronic conditions affecting the care of the patient: Asthma History obtained from an outside historian: N/A External record review: No [facility] [place] EMR records Diagnostic interpretations performed by me: Per my independent interpretation chest x-ray shows: No acute cardiopulmonary process Per my independent interpretation EKG shows: Normal sinus rhythm at a rate of 73. Left axis deviation no signs of LVH based on voltage criteria in aVL. Incomplete right bundle and left anterior fascicular block. No acute injury pattern. No prior for comparison. Medications: Albuterol ipratropium methylprednisolone Social determinants of health affecting disposition: N/A Management discussed with: Respiratory therapy Treatment/interventions considered: Hospitalization but deferred Response to therapies provided: Markedly improved work of breathing following nebulizer treatment HPI This is a 48-year-old asthmatic arriving to the emergency department via private vehicle in the setting of shortness of breath. Patient reports that he has felt short of breath for the past week. He also endorses body aches and fevers. He has not documented a fever at home. He is attempted treatment at home with his albuterol updraft but this is not improved his symptoms. He is never been hospitalized or intubated in the setting of his asthma in the past. He endorses aches rhinorrhea and diarrhea for the past week. No abdominal pain. No chest pain. No nausea. No vomiting. He has had steroids for his asthma in the past year. No recent antibiotics. He does not smoke tobacco but does smoke marijuana. No dysuria no frequency. Exam General: Well-appearing in no acute distress speaking in complete sentences. Head: Normocephalic, atraumatic. Eye: Extraocular eye movements intact. No conjunctival injection. No scleral icterus. Ear, nose, mouth, throat: Grossly normal inspection. Normal voice, handling secretions normally. Neck: Trachea midline. Cardiovascular: Well-perfused distal extremities. Regular rate and rhythm. Soft nontender. Respiratory: Mildly labored respirations. Speaking in 3-4 word sentences. Respiratory rate of 22. No accessory muscle use. Diffuse end expiratory wheezes with prolonged expiratory phase all lung hooker. Gastrointestinal: Nondistended abdomen. Musculoskeletal: No edema. Moving all 4 extremities spontaneously. Skin: Normal for age and race, grossly normal temperature and turgor. No acute rash. Neurologic: Alert and appropriate, no apparent asthma exacerbation. Deficits. Psychiatric: Mood and manner are appropriate. Grooming and personal hygiene are appropriate. Related Data Home Medications Medication Instructions Recorded Confirmed albuterol sulfate 90 mcg/actuation 6.7 gm inhalation PRN PRN 03/23/13 06/29/23 aerosol inhaler (Proventil HFA) ibuprofen 600 mg tablet 600 mg PO TID PRN pain #20 tabs 07/10/18 06/29/23 albuterol sulfate 2.5 mg/3 mL 2.5 mg inhalation Q4H PRN 06/29/23 06/29/23 (0.083 %) solution for nebulization budesonide-formoterol HFA 160 2 puff inhalation BID 06/29/23 06/29/23 mcg-4.5 mcg/actuation aerosol inhaler (Symbicort) inhalational spacing device 06/29/23 06/29/23 ([employer] Chamber) ipratropium 0.5 mg-albuterol 3 mg 3 ml inhalation TID PRN 06/29/23 06/29/23 (2.5 mg base)/3 mL nebulization soln prednisone 50 mg tablet 50 mg PO DAILY #4 tabs 06/29/23 Previous Rx's Medication Instructions Recorded ibuprofen 600 mg tablet 600 mg PO TID PRN pain #20 tabs 07/10/18 prednisone 50 mg tablet 50 mg PO DAILY #4 tabs 06/29/23 Allergies Allergy/AdvReac Type Severity Reaction Status Date / Time Latex, Natural Rubber Allergy Skin Rash Unverified 06/29/23 07:47 codeine AdvReac Mild Nausea Unverified 06/29/23 07:47 church AdvReac Mild Uncoded 06/29/23 07:47 General WAYNE: 4 PFSH All Active Problems (Updated 06/29/23 @ 08:02 by Ruiz Connolly MD) Acute asthma exacerbation (Acute) Injury of right hand (Acute) Neck pain (Acute) Right arm pain (Acute 03/18/18) Atypical pain of right forearm emanating from the sublimis arch towards the ring and little fingers of the right hand. Question of possible entrapment of the median or ulnar nerves by the sublimis arch or by the fascia. Recommend EMG nerve conduction studies of the median and ulnar nerves at the wrist and in the proximal forearm to see if there is any signs of compression of either nerve. 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
[2023-06-29] MEDS: Albuterol/Ipratropium 3 ML UPD VIAL UPD (07:45)
--- NOTE | 2023-06-29 07:45 | DI.RAD_ITS ---
Exam(s) XR PORTABLE CHEST AP EXAM: XR PORTABLE CHEST AP CLINICAL HISTORY: Shortness of breath TECHNIQUE: 2D digital imaging was performed. COMPARISON: CR XR CHEST 2V PA LATERAL from 10/04/2018 FINDINGS: LUNGS: Clear. No pleural abnormality seen. HEART: Normal size. AORTA: Normal diameter. BONES: Unremarkable for age. Soft tissues: Unremarkable. IMPRESSION: No acute findings. DATA REPOSITORY: RADIATION DOSE DELIVERED:
[2023-06-29 07:54] LABS: BE (Venous) 1 mmol/L (-2-3); HCO3 (Venous) 25 mmol/L (23-28); O2 Sat (Venous) 74 %; TCO2 (Venous) 22 mmol/L (24-29); pCO2 (Venous) 39 mmHg (41-51); pH (Venous) 7.42 (7.31-7.41); pO2 (Venous) 38 mmHg
[2023-06-29] MEDS: methylPREDNISolone SUCC 125 MG VIAL IVP (07:55)
[2023-06-29] MEDS: Normal Saline 500 ML IV (07:56)
[2023-06-29 07:59] LABS: Abs Immature Grans 0.04 10^3/uL (0.0-0.06); Absolute Basophil Count 0.16 10^3/uL (0.0-0.2); Absolute Lymphocyte Count 2.89 10^3/uL (1.2-3.4); Absolute Neutrophil Count 8.04 10^3/uL (1.2-6.7); Basophils % 1.1; Eosinophils % 14.9; HCT 52.1 % (40.0-50.0); Immature Grans % 0.3; Lymphocytes % 20.3; MCH 29.5 pg (27.0-33.0); MCHC 34.5 % (32.0-36.0); MCV 85 fL (80-95); MPV 10.4 fL (8.0-11.0); Neutrophils % 56.4; Platelet Count 289 10^3/uL (130-400); RDW-SD 40.3 fL; WBC 14.26 10^3/uL (4.4-10.8)
[2023-06-29 08:01] LABS: Absolute Eosinophil Count 2.12 10^3/uL (0.0-0.7)
[2023-06-29] MEDS: Albuterol 2.5 MG/3 ML INH SOLN VIAL 5 MG UPD (08:01)
[2023-06-29 08:07] LABS: Anion Gap 8.7 mmol/L (3-11); BUN 19 mg/dL (7-18); CO2 26.3 mmol/L (21.0-32.0); CREATININE 1.1 mg/dL (0.70-1.30); Calcium 10.3 mg/dL (8.5-10.1); Chloride 103 mmol/L (98-107); Estimated GFR 82.81 (mL/min/1.73m2); Glucose 131 mg/dL (74-106); Potassium 3.9 mmol/L (3.5-5.1); Sodium 138 mmol/L (136-145)
[2023-06-29 08:13] LABS: Diff Comment Diff Reviewed; RBC Morphology Normal
[2023-06-29 08:40] LABS: COVID-19 PCR Negative (Negative); Influenza A PCR Negative (Negative); Influenza B PCR Negative (Negative); RSV PCR Negative (Negative)
[2023-06-29] MEDS: Albuterol 2.5 MG/3 ML INH SOLN VIAL UPD (09:02)
[2023-06-29 09:31] LABS: Source Nasopharynx
== END 2023-06-29 09:38 | disposition home or self-care (01) ==
PROVIDERS: Emergency Provider Emergency Medicine; PCP Nurse Practitioner Family
DX: J45.901 Unspecified asthma with (acute) exacerbation (principal); I45.2 Bifascicular block; Z79.899 Other long term (current) drug therapy; Z20.822 Contact with and (suspected) exposure to COVID-19
CPT/HCPCS: 36415; 80048; 82805; 87426; 87637; 93005; 94640; 96361; 96374; 99284; 71045; 85025; 93010; J2930; J7613; J7620

== ENCOUNTER 2023-07-30 03:29 | Outpatient (CLI) | payer OTHER, SELFPAY ==
[2023-07-30] MEDS: Levalbuterol HFA 15 GM INH 4 PUFF IH (16:12)
[2023-07-30] MEDS: Inhaler, Assist Device 1 EACH MC (16:12)
--- NOTE | 2023-07-31 13:42 | PFT_ITS ---
Date of service: 07/30/23 Time of Service: 14:55 Pulmonary Function Test Result Indications: Asthma Interpretation Spirometry: There is mild airflow limitation. There is a significant bronchodilator response. Lung Volumes: There is air trapping Diffusion Capacity: Normal diffusion Airway Pressure: Normal airways resistance Impression Mild airflow obstruction with a bronchodilator response and normal diffusion. Gi sharon the patients history, this likely is uncontrolled asthma or asthma with airway remodelling. Clinical Correlation therefore is recommended.
== END 2023-07-30 03:30 | disposition home or self-care (01) ==
LOC: RT 03:30
PROVIDERS: PCP Nurse Practitioner Family; Visit Provider Nurse Practitioner Family
DX: J45.998 Other asthma (principal); R94.2 Abnormal results of pulmonary function studies
CPT/HCPCS: 94060; 94726; 94729

== ENCOUNTER 2024-09-26 15:48 | Outpatient (REF) | payer SELFPAY ==
[2024-09-26 19:06] LABS: Abs Immature Grans 0.05 10^3/uL (0.0-0.06); Absolute Eosinophil Count 0.78 10^3/uL (0.0-0.7); Absolute Monocyte Count 1.21 10^3/uL (0.1-0.8); Absolute Neutrophil Count 8.53 10^3/uL (1.2-6.7); Basophils % 0.7 %; Eosinophils % 5.6 %; HCT 46.5 % (40.0-50.0); HGB 16.1 g/dL (13.5-17.5); Immature Grans % 0.4 %; Lymphocytes % 23.1 %; MCH 29.8 pg (27.0-33.0); MCHC 34.6 % (32.0-36.0); MCV 86 fL (80-95); MPV 11.2 fL (8.0-11.0); Monocytes % 8.7 %; Neutrophils % 61.5 %; Platelet Count 267 10^3/uL (130-400); RDW 12.2 % (11.8-14.1); RDW-SD 38.4 fL; WBC 13.87 10^3/uL (4.4-10.8)
[2024-09-26 19:25] LABS: Calculated LDL 98 mg/dL (<100); Cholesterol 225 mg/dL (<200); HDL Cholesterol 50 mg/dL (40-60); Triglyceride 389 mg/dL (<150)
[2024-09-26 19:28] LABS: Hemoglobin A1C 7.3 % (<5.7)
[2024-09-28 08:54] LABS: IgE 129 IU/mL (<158)
[2024-09-28 10:12] LABS: Hepatitis C Ab w Rflx HCV PCR Negative (Negative)
== END 2024-09-26 15:49 | disposition home or self-care (01) ==
LOC: NCHCN 15:48
PROVIDERS: PCP Nurse Practitioner Family; Visit Provider Nurse Practitioner Family
DX: Z00.00 Encounter for general adult medical examination without abnormal findings (principal)
CPT/HCPCS: 80061; 86803; 82785; 83036; 85025

== ENCOUNTER 2025-04-21 13:04 | Emergency (ER) | payer OTHER, SELFPAY ==
[2025-04-21 13:09] VITALS: BP 178/105; PULSE 62; RESP 16; TEMP 36.6; O2SAT 98
--- NOTE | 2025-04-21 14:00 | DI.RAD_ITS ---
Exam(s) XR SHOULDER RT COMPLETE 2+V EXAM: XR SHOULDER RT COMPLETE 2+V CLINICAL HISTORY: lateral pain after lifting injury. TECHNIQUE: 2D digital imaging was performed. Five views. COMPARISON: No exams were available for comparison FINDINGS: BONES: No acute fracture is present. No bony destructive lesion is seen. JOINTS: No dislocation present. There is mild spurring at the AC joint. Glenohumeral joint space is maintained. There is minimal spurring at the inferior glenoid. SOFT TISSUE: There is a rounded calcification adjacent to the greater tuberosity, consistent with calcific tendinosis. IMPRESSION: Mild degenerative changes and calcific tendinosis DATA REPOSITORY: RADIATION DOSE DELIVERED:
--- NOTE | 2025-04-21 14:12 | ED.GENADUL_ITS ---
Discharge Plan Disposition Patient Disposition: Home Condition: Good Discharge Details Clinical Impression: Acute pain of right shoulder, Impingement of right shoulder, Calcific tendonitis Primary Care Provider: TABITHA HADDAD ED Provider: Magali Griffiths Home Meds and New Rx's Prescriptions: Continued budesonide-formoterol [Symbicort] 160-4.5 mcg/actuation HFA aerosol inhaler 2 puff INHALATION 6XD Qty: 10.2 12RF albuterol sulfate [Proventil HFA] 1 PUFF HFA aerosol inhaler 6.7 gm Inhalation PRN PRN Patient Comments: Patient unsure of dose ibuprofen 600 mg tablet 600 mg PO TID PRN (Reason: pain) Qty: 20 0RF albuterol sulfate 2.5 mg /3 mL (0.083 %) solution for nebulization 2.5 mg inhalation Q4H PRN Patient Comments: INHALE 1 VIAL BY MOUTH IN NEBULIZER EVERY 4 HOURS NEEDED FOR DIFFICULITY BREATHING ipratropium-albuterol 0.5 mg-3 mg(2.5 mg base)/3 mL solution for nebulization 3 ml INHALATION TID PRN Patient Comments: INHALE 1 VIAL BY MOUTH USING NEBULIZER THREE TIMES A DAY NEEDED (DME) [employer]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 It otherwise is reassuring with no evidence to suggest fracture or dislocation. I do not note any significant weakness in your rotator cuff. However, I was concerned that you had impingement syndrome as we discussed which can cause pain from the rotator cuff and the inflammation that is in it. For this reason, you received an injection of steroid and local anesthetic. It may take a few days for the steroid to completely take full effect. Please continue with gentle range of motion but avoid heavy overhead lifting or repetitive motions. Please monitor the area for signs of infection including redness, warmth, drainage, increased pain, fever/chills. If you develop this further new/worsening symptom please seek care urgently once again. Otherwise, please call orthopedics to schedule follow-up appointment, number listed below. Physical therapy referral attached. Stand Alone Forms: Physical Therapy Referral, Work Release Referrals: Nathaniel Bae MD [ [facility] STAFF PHYSICIAN, Orthopaedic Surgical] HPI General Date/Time Provider Initiated Documentation: 04/21/25 13:56 . Limitations to Documentation: no limitations . Information obtained by: patient and RN notes reviewed . History of Present Illness 49 year old M presents to the emergency department with the chief complaint of right shoulder pain, described as moderate, Quality is described as sharp, and is localized to the right and upper extremity. Patient reports no radiation. Patient started experiencing this day(s) (1) and it has been constant. Immobilization improves symptom(s), Movement worsens symptoms . Patient notes no other symptoms.. Patient did receive the following treatments prior to arrival, NSAID and other (APAP) Related Data Home Medications ?Medication ?Instructions ?Recorded ?Confirmed albuterol sulfate 90 mcg/actuation 6.7 gm inhalation P RN PRN 03/23/13 04/21/25 aerosol inhaler (Proventil HFA) ibuprofen 600 mg tablet 600 mg PO TID PRN pain #20 t abs 07/10/18 04/21/25 albuterol sulfate 2.5 mg/3 mL 2.5 mg inhalation Q4H ND N 06/29/23 04/21/25 (0.083 %) solution for nebulization inhalational spacing device 06/29/23 04/21/25 ([employer] Chamber) ipratropium 0.5 mg-albuterol 3 mg 3 ml inhalation TID PRN 06/29/23 04/21/25 (2.5 mg base)/3 mL nebulization soln budesonide-formoterol HFA 160 2 puff inhalation 6XD #1 0.2 grams 08/19/23 04/21/25 mcg-4.5 mcg/actuation aerosol inhaler (Symbicort) Previous Rx's ?Medication ?Instructions ?Recorded ibuprofen 600 mg tablet 600 mg PO TID PRN pain #20 t abs 07/10/18 budesonide-formoterol HFA 160 2 puff inhalation 6XD #1 0.2 grams 08/19/23 mcg-4.5 mcg/actuation aerosol inhaler (Symbicort) Allergies Allergy/AdvReac Type Severity Reaction Status Date / Time Latex, Natural Rubber Allergy Skin Rash Unverified 04/21/25 13:11 codeine AdvReac Mild Nausea Unverified 04/21/25 13:11 chucrh AdvReac Mild Other (See Uncoded 04/21/25 13:11 Comment) General Stated Complaint: Orthopedic WAYNE: 4 Review of Systems Constitutional Constitutional: Reports as per HPI, Denies fever(s), Denies headache(s) and Denies weakness ENT Ears, Nose, Mouth, and Throat: Denies headache(s) Cardiovascular Cardiovascular: Reports as per HPI Respiratory Respiratory: Reports as per HPI and Denies cough Musculoskeletal Musculoskeletal: Reports as per HPI and Denies tingling Integumentary/Breasts Skin/Breast: Reports as per HPI, Denies rash and Denies wounds Neurologic Neurologic: Reports as per HPI, Denies headache(s), Denies tingling, Denies paresthesias and Denies weakness Exam Const General: cooperative, healthy appearing, comfortable, no acute distress, well developed and well groomed Nutritional Appearance: average body habitus and well nourished Orientation: alert and awake Neck Neck: normal visual inspection, full ROM, no lymphadenopathy, no meningeal signs and other (negative Spurlings) Resp Effort & Inspection: normal respiratory effort, able to speak in complete sentences and no respiratory distress Cardio Rate: regular rate Rhythm: regular rhythm Skin General skin exam: no rashes or lesions noted Lesions: no lesions Rashes: no rashes Trauma: no lacerations or abrasions Neuro General: patient alert and patient awake Cognition: normal cognition Speech: speech normal Gait: normal gait Motor: muscle tone normal throughout Sensory Exam: no sensory deficits noted Extrem Shoulder/upper arm images: 2 1. Area of maximal pain is over the subacromial area with pain radiating down the deltoid with forward elevation or shoulder extension. Patient has 2+ distal pulses. Full range of motion of the elbow, wrist, hand. Sensation is over intact over the deltoid, no axillary nerve dysfunction, neurovascular intact elsewhere. Sensation is intact. Patient does have full forward elevation but does have pain at the height of extension. No weakness with empty can but does have pain that radiates down the deltoid. Also has pain with internal rotation although equal to the contralateral side. No weakness with Neer and Arteaga but does have some discomfort associated with this. No pain over the proximal bicep tendon, negative speeds exam Course Vital Signs Vital signs: Vital Signs Temperature 36.6 C 04/21/25 13:09 Pulse 62 04/21/25 13:09 Respiratory Rate 16 04/21/25 13:09 Blood Pressure 178/105 H 04/21/25 13:09 Pulse Oximetry 98 04/21/25 13:09 Temperature 36.6 C 04/21/25 13:09 Pulse 62 04/21/25 13:09 Respiratory Rate 16 04/21/25 13:09 Blood Pressure 178/105 H 04/21/25 13:09 Pulse Oximetry 98 04/21/25 13:09 Pain Level 10 04/21/25 13:09 Procedure Joint Aspiration/Injection Date of Procedure: 04/21/25 Provider that performed the procedure: Magali Griffiths Indication: Other Standard Time Out Performed: Yes Patient Consented: Verbally and Written Local Anesthetic: Lidocaine 1% Amount of anesthetic used(mL): 4 Ultrasound: Not used Patient Tolerated Procedure: well and no complications Procedure Description/Note: Subacromial injection 40mg Kenalog, 4mg Lidocaine Medical Decision Making Patient is a pleasant 49-year-old [id number] male presenting today with chief complaint of right shoulder pain that began yesterday. He reports that yesterday while at work, he was lifting a cinder block when he was stung by a bee and suddenly twisted to the right in order to drop this quickly. Denies any immediate onset of pain but later started having significant pain in the right shoulder. States that occasionally he can have pain coming from the right side of the neck but the pain is predominantly in the right shoulder particularly with extension and forward elevation. He denies any numbness or tingling. He did not actually fall or injure himself during the incident. On exam, patient appears nontoxic. He is resting comfortably no acute distress. Patient has 2+ distal pulses. Neurovascularly intact. No injury to the elbow, wrist, hand. Axillary nerve is intact. No appreciable deformity or swelling to the shoulder. However, patient is tender over the subacromial space with forward elevation and extension. Will patient does not have notable weakness of the bicep tendon with testing, he does have discomfort with empty can testing and Arteaga exam. Exam of the neck reveals no midline tenderness, pain is far further to the right, negative Spurling's. Pain seems to be more along the trapezius. Will obtain x-ray to evaluate for any bony abnormality of the right shoulder. However, more concern at this point for impingement syndrome. X-rays reviewed by myself and the radiologist, patient does have subacromial calcific tendinitis. This correlates with the patient's exam and the impingement syndrome that is noticed. Given the limitations for the patient's ADLs, patient I discussed with/benefits as well as alternatives and expected procedural steps associated with subacromial joint injection. Patient voiced understanding and wishes to proceed. Please see procedure note. This was performed using standard sterile technique. Patient was verbally and written consented. Patient tolerated this well and did have improvement in his discomfort shortly after administration of the medication. Patient received 40 mg Kenalog and 4 cc of 1% lidocaine plain. This injection to the subacromial space. Patient I discussed continued management of his shoulder pain. He will continue to work on his range of motion and gentle exercises at home. Referral for physical therapy was given. I also referred patient to orthopedics given the calcific tendinitis, I am concerned that he may develop recurrence of pain and feel that further evaluation would be appropriate. Work note given at patient's request. Return precautions were discussed, or in particular symptoms of infection status post injection. All questions and concerns were addressed and he is in agreement this plan. Dictation completed using [employer] dictation software. Please excuse any errors or pan shover anomalies that may remain. PFSH All Active Problems (Updated 04/21/25 @ 16:25 by BORIS Bazan) Calcific tendonitis (Acute) Impingement of right shoulder (Acute) Acute pain of right shoulder (Acute) Severe asthma (Acute) Perineal pain (Acute) Male pelvic pain (Acute) Prediabetes (Acute) Lower abdominal pain (Acute) Essential hypertension (Acute) Injury of right hand (Acute) Neck pain (Acute) Right arm pain (Acute 03/18/18) Atypical pain of right forearm emanating from the sublimis arch towards the ring and little fingers of the right hand. Question of possible entrapment of the median or ulnar nerves by the sublimis arch or by the fascia. Recommend EMG nerve conduction studies of the median and ulnar nerves at the wrist and in the proximal forearm to see if there is any signs of compression of either nerve. Medical History (Updated 04/21/25 @ 16:25 by BORIS Bazan) Enthesopathy Noninfectious gastroenteritis Trigeminal neuralgia Hyperlipidemia Fracture of lumbar spine Asthma Surgical History History of tonsillectomy History of surgery on arm bicep tendon repair Family History (Updated 07/31/23 @ 13:46 by Marie Gonzalez) Father Lung cancer Diabetes Mother Lung cancer Sister Substance use disorder addiction to street drugs Social History (Updated 07/31/23 @ 13:48 by Marie Gonzalez) Smoking/Tobacco Use Status: Never Smoking risk assessment performed?: Yes Alcohol Intake: current Alcohol Intake frequency: other Drug use: Rarely Substance use type: marijuana Household members: significant other and children Number of Children: 6 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
[2025-04-21] MEDS: Lidocaine 1% Multi-Dose 50 ML VIAL IJ (15:51)
== END 2025-04-21 16:45 | disposition home or self-care (01) ==
PROVIDERS: Emergency Provider Physician Assistant; PCP Nurse Practitioner Family
DX: M25.511 Pain in right shoulder; M65.20 Calcific tendinitis, unspecified site; M25.811 Other specified joint disorders, right shoulder
CPT/HCPCS: 99283 ×2; 20610; 73030; J2003; J3301